=== PATIENT | male | born 1980 | race Caucasian/White ===

== ENCOUNTER 2019-04-12 13:20 | Inpatient (IN) | payer OTHER ==
[~2019-04-12] VITALS: Ht 190.5 cm; Wt 202.3 kg
--- NOTE | 2019-04-12 13:36 | NUR ---
PT STS NO PAIN, ABLE TO SPEAK IN CLEAR FULL SENTENCES.
--- NOTE | 2019-04-12 15:19 | NUR ---
PT AWAKE AND ALERT. PT C/O SOB, COUGH, AND SCROTAL PAIN. PT PLACED ON FULL CM. PT ABLE TO SPEAK IN COMPLETE SENTENCES. RESP E/U. NAD. CALL LIGHT WITHIN REACH. AUNT AT BEDSIDE
[2019-04-12 16:11] LABS: CALCIUM 9.4 mg/dL (8.5-10.1); CARBON DIOXIDE 32.5 mmol/L (21-32); CHLORIDE SERUM 107 mmol/L (98-107); CREATININE SERUM 0.9 mg/dL (0.7-1.3); GFR1 > 60 mL/min; GLUCOSE SERUM 78 mg/dL (74-106); POTASSIUM SERUM 4.4 mmol/L (3.5-5.1); SODIUM SERUM 146 mmol/L (136-145)
--- NOTE | 2019-04-12 16:14 | NUR ---
DR FONTANEZ AT BEDSIDE TO DISCUSS PLAN OF CARE
[2019-04-12 16:16] LABS: ALKALINE PHOSPHATASE 87 U/L (46-116); ALT/SGPT 21 U/L (16-63); AST/SGOT 17 U/L (15-37); BILIRUBIN TOTAL 0.48 mg/dL (0.20-1.00); TOTAL PROTEIN, SERUM 7.7 g/dL (6.4-8.2)
[2019-04-12 16:28] LABS: BASOPHIL % 1.2 % (0-2); PLATELET COUNT 345 x10^3mcL (130-400)
[2019-04-12 16:32] LABS: RED CELL DISTRIBUTION WIDTH 20.7 % (11.5-14.5)
--- NOTE | 2019-04-12 17:30 | NUR ---
PT MEDICATED PER DOCTORS ORDERS
--- NOTE | 2019-04-12 18:16 | NUR ---
ICT ACCOUNT MANAGER AT BEDSIDE FOR BLOOD DRAW
--- NOTE | 2019-04-12 18:40 | NUR ---
PT AMBULATED TO RESTROOM WITH STEADY GAIT.
[2019-04-12 18:47] LABS: MAGNESIUM 2.2 mg/dL (1.8-2.4); PHOSPHOROUS 3.6 mg/dL (2.5-4.9)
--- NOTE | 2019-04-12 18:47 | NUR ---
PT PROVIDED DINNER MEAL TRAY
[2019-04-12 18:48] LABS: CHOLESTEROL/HDL RATIO 2.9
[2019-04-12 18:54] LABS: T3 TOTAL 0.89 ng/mL
[2019-04-12 18:56] LABS: FREE T4 1.25 ng/dL (0.76-1.46); FREE THYROXINE INDEX 2.2 ug/dL (1.4-4.5); T4(THYROXINE) 5.7 ug/dL (4.7-13.3)
[2019-04-12 20:20] VITALS: BP 123/83
--- NOTE | 2019-04-12 20:34 | NUR ---
RECEIVED PT FROM ED VIA [place]. ORIENTED PT TO ROOM AND SURROUNDINGS. IV NOTED TO LAC PATENT AND INTACT. TELE 9 PLACED ON PT READING NSR. INSTRUCTED PT ON THE USE OF CALL LIGHT FOR ASSISTANCE. ENDORSED PT TO PRIMARY NURSE ARPITA
--- NOTE | 2019-04-12 22:15 | NUR ---
RECEIVED PT IN BED. NEW ADM. FROM ED. A/O X4. DENIES HEADACHE/DIZZINESS. RESP. EVEN AND SLIGHTLY LABORED. 02 AT 5L/MIN VIA NC, LUNG SOUNDS DIM. BILAT. SOB NOTED ON EXERTION. HOB ELEVATED. OCCA. NON PRODUCTIVE COUGH NOTED.SR ON THE MONITOR.DENIES CHEST PAIN OR ANY DISCOMFORT AT THIS TIME. AFEBRILE AND VITAL SIGNS STABLE.HL TO LAC, INTACT AND PATENT. DUE MEDS GIVEN ORDERED, LISA. WELL.REDNESS TO GROIN AREA AND ABD. FOLD.SCROTAL EDEMA ALSO NOTED. BLE WITH 3+ EDEMA, ELEVATED ON PILLOW, PEDAL PULSES PALPABLE, ABLE TO MOVE EXTS. KEPT COMFORTABLE. CALL LIGHT WITHIN REACH. WILL CONTINUE TO MONITOR.
--- NOTE | 2019-04-13 02:16 | NUR ---
EYES CLOSED, APPEARS ASLEEP, EASILY AROUSABLE. RESP. EVEN AND UNLABORED. [address], NO ACUTE DISTRESS NOTED. REMAINS SR ON THE MONITOR. CALL LIGHT WITHIN REACH. WILL CONTINUE TO MONITOR.
[2019-04-13 05:26] VITALS: BP 128/59
--- NOTE | 2019-04-13 06:19 | NUR ---
NO COMPLAINTS NOTED DURING THE NIGHT. RESP. EVEN AND UNLABORED. [address], HOB ELEVATED.AFEBRILE AND VITAL SIGNS STABLE. DUE MEDS GIVEN ORDERED, LISA. WELL. VOIDING FREELY. NO COMPLAINTS NOTED. SR ON THE MONITOR, DENIES CP OR PRESSURE. CALL LIGHT WITHIN REACH. WILL CONTINUE TO MONITOR.
[2019-04-13 06:54] LABS: BASOPHIL % 1.9 % (0-2); PLATELET COUNT 369 x10^3mcL (130-400)
[2019-04-13 07:11] LABS: CHLORIDE SERUM 106 mmol/L (98-107); CREATININE SERUM 0.8 mg/dL (0.7-1.3); GFR1 > 60 mL/min; GLUCOSE SERUM 102 mg/dL (74-106); MAGNESIUM 2.1 mg/dL (1.8-2.4); PHOSPHOROUS 4.4 mg/dL (2.5-4.9); POTASSIUM SERUM 4.3 mmol/L (3.5-5.1); SODIUM SERUM 145 mmol/L (136-145)
--- NOTE | 2019-04-13 07:12 | NUR ---
RECEIVED PT FROM SHIFT NURSE A/OX4. NO ACUTE DISTRESS NOTED. RESP EVEN AND UNLABORED ON 5L 02. HEPLOCK PATENT. BED IN LOW POSITION. CALL LIGHT WITHIN REACH. WILL CONTINUE TO MONITOR.
[2019-04-13 08:00] LABS: RED CELL DISTRIBUTION WIDTH 20.4 % (11.5-14.5)
--- NOTE | 2019-04-13 10:15 | NUR ---
PT RESTING IN BED. RESP EVEN AND UNLABORED ON 5L NC. DENIES SOB. BOTH FEET ELEVATED. BED IN LOW POSITION. CALL LIGHT WITHIN REACH. WILL CONTINUE TO MONITOR.
--- NOTE | 2019-04-13 12:17 | NUR ---
PT ASLEEP BUT AROUSABLE. NO ACUTE DISTRESS NOTED. CALL LIGHT WITHIN REACH. WILL CONTINUE TO MONITOR.
[2019-04-13 12:46] VITALS: BP 149/89
[2019-04-13 14:01] LABS: rbc morphology (normal/abnorm) ABNORMAL (NORMAL)
--- NOTE | 2019-04-13 14:56 | NUR ---
PT LYING IN BED WATCHING TV. NO ACUTE DISTRESS NOTED. DENIES SOB. CALL LIGHT WITHIN REACH. WILL CONTINUE TO MONITOR.
[2019-04-13 16:36] VITALS: BP 142/79
--- NOTE | 2019-04-13 16:45 | NUR ---
PT ASLEEP BUT AROUSABLE. NO ACUTE DISTRESS NOTED. CALL LIGHT WITHIN REACH. WILL CONTINUE TO MONITOR.
--- NOTE | 2019-04-13 18:10 | NUR ---
PT SITTING UP IN BED EATING DINNER. RESP EVEN AND UNLABORED ON 5L NC. DENIES SOB. HEPLOCK PATENT. BED IN LOW POSITION. CALL LIGHT WITHIN REACH. WILL BE ENDORSED.
[2019-04-13 19:15] LABS: microscopic required? NO
[2019-04-13 19:22] LABS: urine erythrocyte NEGATIVE (NEGATIVE)
[2019-04-13 19:30] LABS: AMPHETAMINE QUAL UR NONE DETECTED (See below)
--- NOTE | 2019-04-13 20:00 | NUR ---
PT A/A/O X4. DENIES DIZZINESS AND HEADACHE. BREATH SOUNDS DIMINISHED LAURENCE BASES. BREATHING EVEN AND UNLABORED ON 2L NC. DENIES CHEST PAIN AND PRESSURE. BOWEL SOUNDS ACTIVE. NO C/O N/V AND ABD PAIN. PITTING EDEMA NOTED ON BLE EXTENDING TO THE SCROTUM ELEVATED WITH A PILLOW CASE. IV INTACT ON THE LAC. MADE PT COMFORTABLE. PLACED CALL LIGHT WITH IN REACH. WILL CONTINUE TO MONITOR.
[2019-04-13 20:52] VITALS: BP 134/79
[2019-04-14] VITALS (9 sets, daily range): BP systolic 114–153; BP diastolic 49–97
--- NOTE | 2019-04-14 01:21 | NUR ---
PT RESTING WITH EYES CLOSED. NO DISTRESS AND DISCOMFORT NOTED. WILL CONTINUE TO MONITOR.
--- NOTE | 2019-04-14 02:34 | NUR ---
PT HAD AN EPISODE OF ATRIAL FLUTTER. PT ASSYMPTOMATIC. VITAL SIGHS TAKEN. PATIENTS SPO2 83% ON 5L NC. DR. ROMEO NOTIFIED. WAITING FOR ORDERS. WILL CONTINUE TO MONITOR.
--- NOTE | 2019-04-14 03:04 | NUR ---
PT WAS PLACED ON BI PAP BY RT. PT TOLERATING IT WELL. SPO2 100% WITH BI PAP SETTINGS OF IPAP 15, EPAP 5, RATE 16, FIO2 100. WILL CONTINUE TO MONITOR.
--- NOTE | 2019-04-14 03:47 | NUR ---
PT NOT TOLERATING THE BI PAP PER RT. DR. RICH NOTIFIED AND WENT TO PATIENTS BEDSIDE. IPAP CHANGED FROM 15 TO 20. WILL CONTINUE TO MONITOR.
--- NOTE | 2019-04-14 05:54 | NUR ---
PT REFUSING TO KEEP BIPAP OR O2 ON. PT RIPPED OF BIPAP MASK AND WILL NOT LEAVE ON NASAL CANNULA. PER RN DOCTOR IS AWARE WAS IN ROOM AT ONE OF THE TIMES PT TAKING OFF BIPAP MASK. WILL PASS ON TO DAY SHIFT FOR CONTINUED CARE.
[2019-04-14 06:05] LABS: BASOPHIL % 0.2 % (0-2); PLATELET COUNT 351 x10^3mcL (130-400)
--- NOTE | 2019-04-14 06:17 | NUR ---
PT NOT TOLERATING BI PAP, OXYMIZER 8L, SPO2 85% AND 5L NC, SPO2 45%. PT PUT ON 100% NON REBREATHER MASK BY RT, NOW SPO2 94%. INSTRUCTED THE PT NOT TO TAKE OF MASK. PT VERBALIZED UNDERSTANING. WILL ENDORSE TO THE AM NURSE ACCORDINGLY.
[2019-04-14 06:24] LABS: CALCIUM 8.9 mg/dL (8.5-10.1); CARBON DIOXIDE 37.6 mmol/L (21-32); CHLORIDE SERUM 106 mmol/L (98-107); CREATININE SERUM 0.9 mg/dL (0.7-1.3); GFR1 > 60 mL/min; GLUCOSE SERUM 96 mg/dL (74-106); MAGNESIUM 2.2 mg/dL (1.8-2.4); POTASSIUM SERUM 4.2 mmol/L (3.5-5.1); SODIUM SERUM 147 mmol/L (136-145)
[2019-04-14 06:45] LABS: RED CELL DISTRIBUTION WIDTH 21.2 % (11.5-14.5)
--- NOTE | 2019-04-14 07:30 | NUR ---
RECEIVED PT IN BED, AXOX4, VERBAL, NO FACIAL DROOP/SLURRED SPEECH, DENIES PAIN/CORTES/N/V, DENIES CP/PRESSURE, RESP EVEN AND NOT IN ACUTE DISTRESS, LUNG SOUND DIM BLL, ON 100% NON REBREATHER, SAT 97%, CHEST RISE SYMMETRICAL, SR MONITOR, TELE #9, HR 85, ABLE TO MOVE ALL EXTREMITIES, PALP PULSE, CAP REFIL < 3S, EDEMA 3+ TO BLE EXTENDING TO SCROTAL AREA, REDNESS NOTED TO SCROTUM AREA, CONTINENT, ASSSITED PT TO BATHROOM, BACK TO BED, [facility] BED, CALL LIGHT IN REACH, BED AT LOW POSITION, RAILS X 2, ALL NEEDS MET, CONTINUE TO MONITOR
--- NOTE | 2019-04-14 08:30 | NUR ---
R.T. AT BEDSIDE.PT JOT2=427 % ON NON-REBREATHER.PUT HIM ON 12 L OXIMIZER WITH SPO2=97 %. PT GOT UP ON THE SIDE OF THE BED FOR BREAKFAST.
--- NOTE | 2019-04-14 09:10 | NUR ---
AM MEDICATION GIVEN OER MD ORDER VIA EMAR, TAKEN WELL, NO ADVERSE SIDE EFFECT NOTED AT THIS TIME, ASSITED TO BATHROOM, BACK TO BED, SAFETY PROTOCOL FOLLOWED, CONTINUE TO MONITOR
--- NOTE | 2019-04-14 11:41 | NUR ---
I HAVE REVIEWED THE DATA COLLECTION BY GUERA ACEVEDO (NAME):ALBA BURNS ENTERED ON (DATE/TIME):04/14/19 AT 1141 I CONCUR WITH THE DATA AND ANY EXCEPTIONS OR COMMENTS ARE LISTED BELOW:
--- NOTE | 2019-04-14 11:58 | NUR ---
PT IN BED, SLEEPING, IN NO ACUTE RESP DISTRESS, DENIES PAIN/DISCOMFORT, BS CHECKED, NOTED 122, NO INSULIN COVERARGE NEEDED PER SLIDING SCALE, PT AWARE, SAFETY PRECAUTION PROTOCOL FOLLOWED, CONTINUE TO MONITOR
--- NOTE | 2019-04-14 13:15 | NUR ---
RECEIVED CRITICAL ABG RESULT FROM RT AND LAB, DR JARROD BRADLEY, AWAITING FOR CALL BACK, CONTINUE TO MONITOR
--- NOTE | 2019-04-14 13:20 | NUR ---
AT BEDSIDE CHECKING ON PT.SHERWINO RESP THERAPIST AT BEDSIDE. ORDERED TO PUT PT ON BIPAP AND TRANSFER TO ICU FOR CLOSE MONITORING.
--- NOTE | 2019-04-14 13:40 | NUR ---
RECEIVING THE PATIENT TRANSFERRED FROM ROOM 238A [facility] UNIT. PATIENT LETHARGIC, BUT AROUSABLE WITH TACTILE STIMULI AND ORIENTED TO PERSON AND PLACE WITH GARBLED SPEECH. PATIENT IS ON BIPAP AT 20/5, RATE 26 AND FIO2 100%. PATIENT IS HOOKED TO FULLY MONITORING EQUIPMENT; O2 SAT 100% AND TELE SHOWS NORMAL SINUS RHYTHMS AT THIS TIME. CALL LIGHT WITHIN REACH. SIDE RAILS UP X3.
--- NOTE | 2019-04-14 13:41 | NUR ---
TRANSFER PT TO ICU PER MD ORDER, REPORT GIVEN TO GUERA BRANTLEY, IN ICU, PT WILL BE IN ICU ROOM 9
--- NOTE | 2019-04-14 14:41 | NUR ---
ATTEMPTING TO INSERT AVILA CATH TO THE PATIENT BUT UNABLE TO DO SO. DR. BUTLER IS MADE AWARE. WILL ATTEMPT TO INSERT AVILA AGAIN LATER.
--- NOTE | 2019-04-14 15:00 | NUR ---
DR. LEE IS AT BEDSIDE SEEING THE PATIENT AND ADJUSTING THE BIPAP SETTING 24/5 AND RATE 22.
--- NOTE | 2019-04-14 16:06 | NUR ---
DR. LEE PAGED FOR RT TO RELAY ABG RESULTS, AWAITING CALL BACK.
--- NOTE | 2019-04-14 16:25 | NUR ---
RECIEVED CALL BACK FROM DR. LEE AND RELAYED ABG RESULTS WITH NO FURTHER ORDERS AT THIS TIME. WILL CONT TO MONITOR.
--- NOTE | 2019-04-14 17:01 | NUR ---
PATIENT INCONTINENT URINE AND WAS CLEANSED. PATIENT SACRAL-COCCYGEAL AREA IS INTACT. NO REDNESS NOTED. SOME REDNESS TO PERIANAL, SCROTAL AND INNER THIGH AREA. INTERDRY APPLIED TO GROIN AREAS.
--- NOTE | 2019-04-14 18:00 | NUR ---
THE RT CAITLIN CHANGED THE BIPAP TO HIGH FLOW AT 40 LPM AND 100% FIO2. THE SAT AT THIS TIME >90%.
--- NOTE | 2019-04-14 18:17 | NUR ---
PATIENT'S BS VIA FINGER STICK AT FIRST TIME WAS 66. APPLE JUICE WAS GIVEN TO THE PATIENT. BS RECHECKED 87 AFTER PATIENT DRANK JUICE.
--- NOTE | 2019-04-14 18:30 | NUR ---
THE PATIENT TOTALLY AWAKE AND ORIENTED TO PERSON, PLACE AND TIME. PATIENT ABLE TO SIT IN BED HAVING DINNER.
--- NOTE | 2019-04-14 19:00 | NUR ---
THE IV SITE AT LAC LEAKING; ATTEMPTING TO INSERT NEW IV SITE FOR THE PATIENT BUT UNSUCCESSFUL.
--- NOTE | 2019-04-14 19:05 | NUR ---
RECEIVED REPORT FROM CRISTOBAL LYNNE. WILL RESUME CARE.
--- NOTE | 2019-04-14 19:25 | NUR ---
ATTEMPTED TO INSERT AVILA CATHETER WITH NO SUCCESS. PT TRIED USING URINAL BUT DUE TO SCROTAL EDEMA, IT MADE HARD FOR PT TO DO SO WITH URINE LEAKING ONTO CHUCKS. PT URINATED APPROXIMATELY 500CC. PT CLEANED, NEW LINENS PROVIDED.
--- NOTE | 2019-04-14 19:44 | NUR ---
NEW 22G PERIPHERAL IV ADMINISTERED TO LEFT WRIST. PATENT, DRESSING CDI.
--- NOTE | 2019-04-14 19:49 | NUR ---
RT KUNZ AT BEDSIDE FOR ABG BLOOD DRAW.
--- NOTE | 2019-04-14 20:08 | NUR ---
RT KUNZ PUT PT ON BIPAP.
--- NOTE | 2019-04-15 01:00 | NUR ---
INSERTED AVLIA CATHETER 18F DRAINING VIA GRAVITY WITH 800CC OF LIGHT YELLOW URINE OUTPUT. PT TOLERATED WELL.
[2019-04-15 03:11] VITALS: BP 124/62
--- NOTE | 2019-04-15 04:35 | NUR ---
DR. GARAY AT BEDSIDE ASSESSING PT. UPDATES PROVIDED.
[2019-04-15 05:03] LABS: BASOPHIL % 0.3 % (0-2)
[2019-04-15 05:13] LABS: CALCIUM 8.8 mg/dL (8.5-10.1); CHLORIDE SERUM 103 mmol/L (98-107); CREATININE SERUM 0.9 mg/dL (0.7-1.3); GFR1 > 60 mL/min; GLUCOSE SERUM 85 mg/dL (74-106); PHOSPHOROUS 3.7 mg/dL (2.5-4.9); POTASSIUM SERUM 4.1 mmol/L (3.5-5.1); SODIUM SERUM 146 mmol/L (136-145)
[2019-04-15 05:25] LABS: PLATELET COUNT 318 x10^3mcL (130-400)
[2019-04-15 05:26] LABS: CARBON DIOXIDE 41.3 mmol/L (21-32)
[2019-04-15 05:29] LABS: RED CELL DISTRIBUTION WIDTH 20.1 % (11.5-14.5)
[2019-04-15 05:41] LABS: rbc morphology (normal/abnorm) ABNORMAL (NORMAL)
--- NOTE | 2019-04-15 07:10 | NUR ---
RECIEVED PT RESTING BUT AROUSABLE. LETHARGIC IN NATURE. ORIENTED TO PERSON, PLACE, AND TIME. PERRL. NO FACIAL DROOP NOTED. REMAINS ON BIPAP, SETTINGS: 60% FIO2, 22 RATE, 24 IPAP, 5 EPAP. BREATHING E/U. NO SIGNS OF SOB OR RESP DISTRESS NOTED. TRACHEA MIDLINE. NO JVD PRESENT. SKIN IS WARM/DRY TO TOUCH, PINK IN COLOR TO BUE AND REDDENED TO BLE. +1 EDEMA TO BUE, +3 EDEMA NOTED TO BLE. ERYTHEMA NOTED TO PERINEAL AREA, INNER THIGHS, ABD FOLDS. INTERDY AND ZGUARD APPLIED. ABD IS ROUNDED. NO S/S OF N/V. INVERTED PERINEAL AREA NOTED. SCROTAL EDEMA PRESENT. F/C INTACT AND DRAINING VIA GRAVITY. URINE IS LIGHT YELLOW IN COLOR AND CLEAR. GOOD OUTPUT NOTED. ON BERI-BED, BED IN LOWEST POSITION, HOB 45 DEGREES, X3 SIDE RAILS UP, CALL LIGHT WITHIN REACH.
--- NOTE | 2019-04-15 07:10 | NUR ---
RECEIVED REPORT FROM CAITLIN LYNNE. ALL QUESTIONS ANSWERED AND ADDRESSED. WILL RESUME CARE OF PT.
--- NOTE | 2019-04-15 07:16 | NUR ---
GAVE REPORT TO SELVIN LYNNE. ALL QUESTIONS AND CONCERNS ADDRESSED.
[2019-04-15 07:30] VITALS: BP 137/84
[2019-04-15 08:26] VITALS: Ht 190.5 cm; Wt 202.3 kg
--- NOTE | 2019-04-15 08:35 | NUR ---
PT PUT ON HIGH-FLOW AT THIS TIME TO EAT BREAKFAST. SETTINGS: 40LPM AND 60% FIO2. O2 SAT OF 97%. DENIES SOB, N//V, OR ASPIRATION. WILL CONT TO MONITOR.
--- NOTE | 2019-04-15 08:39 | NUR ---
RECIEVED CALL FROM DR. LEE AND RELAYED ABG RESULTS, PER DR. LEE PT TO DO I.S WHILE ON HIFLOW AND THEN BE PLACED BACK ON BIPAP 30 MIN AFTER EATING BREAKFAST. PRIMARY RN AND RT MADE AWARE.
--- NOTE | 2019-04-15 09:08 | NUR ---
INCENTIVE SPIROMETER USED BY PT. 1500ML MEASURED. PT BEING PLACED BACK ON BIPAP BY DOROTHY BRADLEY. BIPAP SETTINGS REMAIN THE SAME: 24 IPAP, 5 EPAP, 60% FIO2, 22 RATE.
--- NOTE | 2019-04-15 10:30 | NUR ---
DR. FRANCES AND RESIDENTS AT BEDSIDE. UPDATES PROVIDED. ALL QUESTIONS AND CONCERNS ADDRESSED. NO NEW ORDERS AT THIS TIME.
--- NOTE | 2019-04-15 10:31 | NUR ---
DR. FRANCES, RESIDENTS, INDUSTRIAL ELECTRICIAN AND PRIMARY RN AT BEDSIDE FOR MORNING ROUNDS. PLAN OF CARE DISCUSSED WITH PT. ALL IN AGREEMENT WITH CARE. WILL CONT TO MONITOR.
[2019-04-15 11:00] VITALS: BP 119/49
--- NOTE | 2019-04-15 12:18 | NUR ---
DOROTHY BRADLEY AT BEDSIDE TO PUT PT ON HIGHFLOW SO THAT PT IS ABLE TO EAT LUNCH. SETTINGS: 40 LPM, 60% FIO2. PT O2 SAT OF 98%. TOLERATING WELL. WILL CONT TO MONITOR.
--- NOTE | 2019-04-15 12:55 | NUR ---
DR. LEE AND DR. IYER AT BEDSIDE ASSESSING PT AND GIVING PT INFORMATION ON CONDITION. PER DR. LEE, WANTS PT TO WORK WITH PHYSICAL THERAPY TO GET HIM UP AND MOVING OUT OF BED TO CHAIR. DR. LEE TITRATED LASIX GTT TO 5ML/HR. NO OTHER NEW ORDERS AT THIS TIME.
--- NOTE | 2019-04-15 13:17 | NUR ---
ULTRASOUND AT BEDSIDE
--- NOTE | 2019-04-15 14:06 | NUR ---
PT NOTED TO BE DESATING ON HIFLOW SPO2 NOTED LOW 80%, PT PLACED BACK ON BIPAP SAME PREVIOUS SETTINGS. SPO2 NOW 97%, WILL CONT TO MONITOR.
--- NOTE | 2019-04-15 14:25 | NUR ---
DOROTHY BRADLEY AT BEDSIDE CHANGING BIPAP SETTINGS TO 22 (IPAP)/5 (EPAP) PER DR. LEE'S ORDERS. PT O2 SAT OF 98%. WILL CONT TO MONITOR
[2019-04-15 15:16] VITALS: BP 131/60
--- NOTE | 2019-04-15 15:56 | NUR ---
DOROTHY BRADLEY AT BEDSIDE. CHANGED BIPAP SETTINGS TO : 50% FIO2, 22/5, 22 RATE. O2 SAT OF 99%. WILL CONT TO MONITOR.
--- NOTE | 2019-04-15 16:02 | NUR ---
INCENTIVE SPIROMETER USED BY PT AND MEASURED 1500ML.
--- NOTE | 2019-04-15 16:08 | NUR ---
PHYSICAL THERAPIST AT BEDSIDE ASSESSING PT.
--- NOTE | 2019-04-15 16:20 | NUR ---
PT WORKING WITH PHYSICAL THERAPIST. PT TOLERATED WELL WITH GETTING OUT OF BED, STANDING UP, AND MOVING SIDE TO SIDE. O2 SAT BETWEEN 97-99% FOR THE DURATION OF THERAPY. WILL CONT TO MONITOR.
--- NOTE | 2019-04-15 16:58 | NUR ---
PT O2 DESATTING TO 89-90%. DOROTHY RT AT BEDSIDE CHANGING BIPAP SETTINGS TO 60% FIO2.
--- NOTE | 2019-04-15 18:49 | NUR ---
PT PUT BACK ON HIFLOW. SETTINGS REMAIN THE SAME PREVIOUS. O2 SAT = 96%.
--- NOTE | 2019-04-15 18:55 | NUR ---
PLACED ON VAPOTHERM 40L, 60% AT THIS TIME. SPO2 97%, NO RESP DISTRESS NOTED. WILL MONITOR.
--- NOTE | 2019-04-15 19:03 | NUR ---
REPORT GIVEN TO JOLANTA LYNNE. ALL QUESTIONS ANSWERED AND ADDRESSED. WILL ENDORSE CARE.
[2019-04-15 19:35] VITALS: BP 135/69
--- NOTE | 2019-04-15 19:35 | NUR ---
REC'D REPORT FROM CORAL LYNNE TO ASSUME CARE. PT IS A/O X4. SPEECH CLEAR AND APPROPRIATE. PERRLA NOTED.EENT FREE OF DISCHARGE.RESPS E/U ON HI-FLOW FIO2 60%. CHEST RISE EQUAL AND SYMMETRICAL. PUNCHBOARD ASSEMBLER IN PLACE SHOWING NSR. BP 135/69 MAP 84, HR 85. CHEST WALL STABLE. DENIES ANY CP, SYNCOPE OR DIZZINESS. PULSES PALPABLE X4. BUE/BLE NONPITTING EDEMA. CAP REFILL < 3 SECS. IV TO L WRIST INTACT AND PATENT. LASIX GTT INFUSING @ 5ML/HR. GEN WEAKNESS NOTED. TURNED AND REPOSITIONED Q2H FOR PRESSURE RELIEF. ABD OBESE, SOFT, NONTENDER TO TOUCH. BOWEL SOUNDS ACTIVE. F/C INTACT AND DRAINING VIA GRAVITY YELLOW URINE. DENIES ANY URINARY SYMPTOMS. BLE, INNER THIGHS, AND CARRIE-AREA ERYTHEMA. PT ON BARIATRIC BED. TURNED AND REPOSITIONED Q2H FOR PRESSURE RELIEF. ALL NEEDS MET AT THIS TIME. WILL CONTINUE TO MONITOR.
--- NOTE | 2019-04-15 22:00 | NUR ---
LAURA RT AT BEDSIDE, PT PLACED ON BIPAP.
--- NOTE | 2019-04-15 23:18 | NUR ---
PTS SPO2 AT 88%, LAURA BRADLEY AT BEDSIDE TITRATED FIO2 TO 70%.
[2019-04-15 23:20] VITALS: BP 118/50
--- NOTE | 2019-04-15 23:25 | NUR ---
PT HAD LARGE SOFT BM, GOOD CARRIE CARE PROVIDED, LINENS CHANGED. PT ABLE TO ASSIST WITH BED MOBILITY.
--- NOTE | 2019-04-16 01:10 | NUR ---
CRITICAL LAB VALUE H/H 6.04/01, DR. CEBALLOS MADE AWARE VIA TELEPHONE. PER DR. CEBALLOS SHE WILL ORDER ANOTHER UNIT OF PRBC.
[2019-04-16 03:11] VITALS: BP 111/58
[2019-04-16 04:44] LABS: BASOPHIL % 0.3 % (0-2); PLATELET COUNT 328 x10^3mcL (130-400)
[2019-04-16 04:47] LABS: RED CELL DISTRIBUTION WIDTH 20.6 % (11.5-14.5)
[2019-04-16 04:52] LABS: CALCIUM 9.2 mg/dL (8.5-10.1); CARBON DIOXIDE 36.6 mmol/L (21-32); CHLORIDE SERUM 100 mmol/L (98-107); CREATININE SERUM 0.9 mg/dL (0.7-1.3); GFR1 > 60 mL/min; GLUCOSE SERUM 84 mg/dL (74-106); PHOSPHOROUS 3.7 mg/dL (2.5-4.9); POTASSIUM SERUM 3.4 mmol/L (3.5-5.1); SODIUM SERUM 142 mmol/L (136-145)
--- NOTE | 2019-04-16 06:25 | NUR ---
LAURA BRADLEY AT BEDSIDE PLACED PT ON HI-FLOW FIO2 60%.
[2019-04-16 07:10] VITALS: BP 140/60
--- NOTE | 2019-04-16 07:10 | NUR ---
RECIEVED REPORT FROM JOLANTA LYNNE. ALL QUESTIONS ANSWERED AND ADDRESSED. WILL RESUME CARE.
--- NOTE | 2019-04-16 07:10 | NUR ---
RECIEVED PT AAOX4. ABLE TO FOLLOW COMMANDS. SPEECH IS CLEAR AND APPROPRIATE. NO FACIAL DROOP NOTED. PUPILS 3MM IN SIZE AND BRISK IN RESPONSE TO LIGHT BILATERALLY. EENT FREE OF DISCHARGE. ORAL MUCOSA PINK AND MOIST. TRACHEA MIDLINE. NO JVD PRESENT. PIMPLES NOTED TO CHEST AREA. ON HIGHFLOW OXYGEN @ 40LPM, 50% FIO2. BREATHING IS EVEN AND UNLABORED. SYMMETRICAL CHEST WALL EXPANSION NOTED. NO ADVENTITIOUS LUNG SOUNDS AUSCULTATED. NO SIGNS OF RESP DISTRESS NOTED. DENIES ANY CP OR TIGHTNESS OR SOB. SKIN IS WARM/DRY TO TOUCH TO BUE AND BLE. COLOR IS PINK TO BUE, REDDENED TO BLE. PIV NOTED TO L WRIST INTACT, PORT PATENT, DRESSING CDI. PT IS MORBIDLY OBESE ON A BERI-BED. ABD IS ROUNDED. AVILA CATHETER IN PLACE AND IS DRAINING VIA GRAVITY. PT IS NOTED TO HAVE AN INVERTED PENIS WITH SCROTAL EDEMA. URINE IS YELLOW IN COLOR WITH GOOD OUTPUT. ERYTHEMA IS NOTED TO THE PERINEAL AREA, ABDOMINAL FOLDS, AND INNER THIGHS. INTERDY TO ABD FOLDS, ZGAURD APPLIED TO ERYTHEMA AREAS. DRY SKIN TO BLE NOTED. X3 SIDE RAILS UP, HOB 30 DEGREES, BED IN LOWEST POSITION, CALL LIGHT WITHIN REACH.
--- NOTE | 2019-04-16 09:37 | NUR ---
DR. FRANCES AND RESIDENTS AT BEDSIDE ASSESSING PT. UPDATES PROVIDED. NO NEW ORDERS AT THIS TIME.
--- NOTE | 2019-04-16 10:36 | NUR ---
INCENTIVE SPIROMETER BEING USED BY PT. 1500ML MEASURED.
--- NOTE | 2019-04-16 10:51 | NUR ---
DOROTHY BRADLEY AT BEDSIDE. HIGHFLOW CHANGED TO 50% FIO2. O2 SAT OF 95%.
[2019-04-16 11:19] VITALS: BP 115/57
--- NOTE | 2019-04-16 12:07 | NUR ---
DR. LEE AT BEDSIDE ASSESSING PT. UPDATES PROVIDED. PT ABLE TO GO UPSTAIRS TO [facility].
--- NOTE | 2019-04-16 13:23 | NUR ---
GIVEN REPORT TO JUANCHO LYNNE FROM [facility]. ALL QUESTIONS ANSWERED AND ADDRESSED. BED 206 A, TELE MONITOR #7. WILL ENDORSE CARE.
[2019-04-16 14:11] VITALS: BP 104/47
--- NOTE | 2019-04-16 16:43 | NUR ---
SEEM BY MD IYER. HI FLOW O2 AT 25LPM AT 40% CONC. SAT 95%
[2019-04-16 16:51] VITALS: BP 121/63
--- NOTE | 2019-04-16 18:39 | NUR ---
UP TO BEDSIDE THEN COMMODE WITH STAFF ASSIST. HAVING DINNER NOW.
--- NOTE | 2019-04-16 20:00 | NUR ---
RECEIVED PT IN BED, ALERT AND ORIENTED. ABLE TO VERBALIZE NEEDS. RESP. EVEN AND UNLABORED. LUNG SOUNDS DIM. BILAT. ON 02 AT 25L/MIN, 40% HIGH FLOW , SAT. 94% . ON CONT. PULSE OX. HOB ELEVATED, NO ACUTE DISTRESS NOTED.AFEBRILE AND VITAL SIGNS STABLE. SR ON THE MONITOR, DENIES CP OR ANY DISCOMFORT AT THIS TIME. ON LASIX GTT AT 5ML/HR, INFUSING VIA LFA, SITE CLEAR. AVILA CATH INTACT AND DRAINING YELLOW COLOR URINE. ON BARIATRIC BED, OBESE, ABLE TO REPOSITION SELF IN BED. WITH SCROTAL SWELLING/REDNESS.REDNESS TO INNER THIGH AND ABD. FOLDS. HS CARE DONE. CALL LIGHT WITHIN REACH. WILL CONTINUE TO MONITOR.
[2019-04-16 20:34] VITALS: BP 138/55
--- NOTE | 2019-04-16 23:15 | NUR ---
PLACED ON BIPAP MACHINE FOR RESP. SUPPORT BY RT. LISA. WELL. NO ACUTE DISTRESS NOTED. WILL CONTINUE TO MONITOR.
--- NOTE | 2019-04-17 02:11 | NUR ---
NO COMPLAINTS NOTED AT THIS TIME. EYES CLOSED, APPEARS ASLEEP, EASILY AROUSABLE. ON BIPAP MACHINE FOR RESP. SUPPORT, LISA. WELL. NO ACUTE DISTRESS NOTED. WILL CONTINUE TO MONITOR.
[2019-04-17 05:30] VITALS: BP 124/60
[2019-04-17 05:58] LABS: BASOPHIL % 0.3 % (0-2); PLATELET COUNT 321 x10^3mcL (130-400)
--- NOTE | 2019-04-17 06:07 | NUR ---
OFF BIPAP MACHINE AT THIS TIME, PLACED ON 02 AT 25L/MIN, 40% VIA HI FLOW, SAT. 95% , LISA. WELL. NO ACUTE DISTRESS NOTED. SLEPT WELL, NO SIGNIFICANT CHNAGE IN PT,S CONDITION. AFEBRILE AND VITAL SIGNS STABLE. SR ON THE MONITOR, DENIES CHEST PAIN OR ANY DISCOMFORT AT THIS TIME. DUE MEDS GIVEN ORDERED, LISA. WELL. REMAINS ON LASIX DRIP AT 5CC/HR, IV SITE CLEAR. AVILA CATH DRAINING YELLOW COLOR URINE, TOTAL AMT. 1800ML. KEPT COMFORTABLE. CALL LIGHT WITHIN REACH. WILL CONTINUE TO MONITOR.
[2019-04-17 06:41] LABS: CALCIUM 8.9 mg/dL (8.5-10.1); CARBON DIOXIDE 33.9 mmol/L (21-32); CHLORIDE SERUM 102 mmol/L (98-107); CREATININE SERUM 0.8 mg/dL (0.7-1.3); GFR1 > 60 mL/min; GLUCOSE SERUM 89 mg/dL (74-106); MAGNESIUM 2.1 mg/dL (1.8-2.4); PHOSPHOROUS 4.5 mg/dL (2.5-4.9); POTASSIUM SERUM 3.5 mmol/L (3.5-5.1); SODIUM SERUM 141 mmol/L (136-145)
[2019-04-17 06:49] LABS: RED CELL DISTRIBUTION WIDTH 20.5 % (11.5-14.5)
--- NOTE | 2019-04-17 07:20 | NUR ---
RECEIVED PT FROM ASSEMBLER BILLIARD TABLE. PT AWAKE, ALERT A/O X3. PT ON HI FLOW O2 25LPM, NO RESP DISTRESS NOTED AT THIS TIME. PT ON TELE 7, DENIES CHEST PAIN. PERIPHERAL PULSES PALPABLE. EDEMA NOTED TO BLE. PT HAS AVILA CATH WITH CLEAR YELLOW URINE DRAINING. REPORTS BM YESTERDAY WITH NO ISSUES. IV ACCESS LFA C/D/I INFUSING LASIX GTT AT 5ML/HR. PT DENIES PAIN AT THIS TIME. PT NOTED TO HAVE GENERALIZED WEAKNESS. SAFETY MEASURES IN PLACE, BED LOW AND LOCKED. CALL LIGHT WITHIN REACH.
[2019-04-17 08:22] VITALS: BP 125/51
--- NOTE | 2019-04-17 08:53 | NUR ---
DUE MEDS ADMINISTERED. PT TOLERATED WELL. NO ACUTE DISTRESS NOTED AT THIS TIME. PT DENIES PAIN. SAFETY MAINTAINED.
--- NOTE | 2019-04-17 10:45 | NUR ---
PT NOTED TO DESATURATE WHEN SLEEPING. WHEN PT AWAKE, 02 LEVEL RISES. PT USING INCENTIVE SPIROMETER TO HELP WITH SATURATION WHILE AWAKE. PT ENCOURAGED TO USE INCENTIVE SPIROMETER.
[2019-04-17 11:46] LABS: rbc morphology (normal/abnorm) ABNORMAL (NORMAL)
[2019-04-17 12:16] VITALS: BP 112/49
--- NOTE | 2019-04-17 12:29 | NUR ---
Initial Nutrition Assessment: () KINSEY PUCKETT 39M Dx: Heart failure PMHx: HTN PSHx: None Labs: Alb 3.0 L, HDL 26 L, BNP 71.59 WNL, A1c 6.4 H, TSH 6.81 H Meds: Colace, Coreg, Lasix, Synthroid, Zestril, Zofran Diet: CCHO PO intake since admission: 100% Ht: 75in Wt: 472# BMI: 59.1 Bed scale: N/A IBW: 196# %IBW: 241% UBW: ~300# Age: 39 Food Allergies: NKFA Skin: Scrotal swelling/red, redness to inner thigh and abd folds Juan: 15 Edema: BLE, scrotal GI: Obese, BS active, no N/V noted Last BM: 04/16 Note (04/17): Visited pt bedside, states no c/o pain at this time, SOB better, and BLE edma improving. Pt states usually around 300# and trying to lose weight, says cut out soft drinks from diet since last July. Pt on Lasix regimen (40mg IV BID) and 1L/day fluid restriction r/t new onset CHF per H&P. Provided and explained handout on managing heart failure with diet. Pt states has never spoken w/ a dietitian or MD on any specific diet to follow or taken any diet/health education. Spoke w/ Dr Juan regarding diet adjustment, confirmed. Problem with: N/V/D/C: None Problems with: Chewing: No Swallowing: No Current appetite: good Recent wt change: Yes, UBW 300# %wt change: N/A Vitamin/Supplement use: MVI (1 a Day & Alive) Special diet at home: Regular, low sodium. Physical activity: Occupation 8hrs/day, 5 days/wk (sometimes 10-12hrs/day) Nutrition education given (specify specific nutrition education and handout given): [facility] Heart Failure Nutrition Therapy: tracking and limiting Na intake to 2g/day, monitoring fluid intake and daily weight, and choosing lower fat food items. Explained to pt how sodium retains water in the body, and the benefits of moderate wt loss for this condition. Food-drug interactions? Education given? [facility] Heart Failure Nutrition Therapy Estimated Nutritional Needs Based on adjusted body weight (120.5 kg) Energy: 1260-7820 kcal/day (30-35 kcal/kg for obesity/moderate wt loss) Protein: 68-82 g/day (1.5-2.0 g/kg) Fluid: 1000mL/day per MD (r/t Lasix regimen; fluid restriction r/t CHF) Nutrition Diagnosis: Altered nutrition-related lab values r/t obesity, heart failure AEB BMI 59.1, HDL 26, A1c 6.4 H Intervention 1. Recommend change diet order to Cardiac diet. Monitor/Evaluate Goal: PO intake at least 75% of estimated needs Monitor: PO intake, Labs, GI function F/U in 3-5 days as modeate risk 04/20-04/22.
--- NOTE | 2019-04-17 12:57 | NUR ---
PT AWAKE WITH FAMILY AT BEDSIDE. NO ACUTE DISTRESS OR DISCOMFORT NOTED AT THIS TIME. WILL CONTINUE TO MONITOR.
--- NOTE | 2019-04-17 14:19 | NUR ---
PT AWAKE, ALERT WATCHING TV WITH NO ACUTE DISTRESS NOTED AT THIS TIME. SAFETY MEASURES MAINTAINED.
--- NOTE | 2019-04-17 16:39 | NUR ---
PT REPOSITIONED WITH CHUCKS CHANGED. LOTION APPLIED TO BOTH FEET AND LOWER LEGS. NO ISSUES NOTED WITH SKIN AT THIS TIME. INTERDRY BETWEEN FOLDS OF ABDOMEN AND GROIN. PT SCROTUM SUPPORTED OFF MATRESS. PT DENIES ANY PAIN AT THIS TIME. NO RESP DISTRESS NOTED. SAFETY MAINTAINED.
[2019-04-17 17:11] VITALS: BP 118/48
--- NOTE | 2019-04-17 18:40 | NUR ---
PT STABLE AT THIS TIME. NO ACUTE/RESP DISTRESS NOTED AT THIS TIME. ALL NEEDS TENDED TO THROUGHOUT SHIFT. PT ABLE TO MAKE NEEDS KNOWN. 4000ML URINE OUT ON DAY SHIFT WITH LASIX GTT. NO BM TODAY. 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
--- NOTE | 2019-04-17 19:40 | NUR ---
RECEIVED REPORT FROM DAY SHIFT RN. PT RESTING IN BED. AA&O X4. NO SOB ON HIGH FLOW O2 25L. NO C/O PAIN. NO DISTRESS NOTED. IV TO LEFT WRIST, LASIX INFUSING. AVILA CATHETER IN PLACE DRAINING YELLOW URINE BY GRAVITY. SAFETY MEASURES IN PLACE. BED IN LOWEST POSITION. SIDE RAILS UP X2. INSTRUCTED PT TO USE THE CALL LIGHT FOR ASSISTANCE. CALL LIGHT WITHIN REACH.
[2019-04-17 20:35] VITALS: BP 120/56
--- NOTE | 2019-04-18 00:45 | NUR ---
PT RESTING WITH EYES CLOSED. NO RESPIRATORY DISTRESS: IPAP 22, EPAP 5, RATE 22, FIO2 60. CALL LIGHT WITHIN EASY REACH. WILL CONTINUE TO MONITOR.
[2019-04-18 05:19] VITALS: BP 133/75
--- NOTE | 2019-04-18 06:49 | NUR ---
PT RESTED AT LONG INTERVALS THROUGHOUT SHIFT. NO RESP DISTRESS NOTED. ON BIPAP AT THIS TIME. SAFETY MEASURES MAINTAINED. CALL LIGHT WITHIN REACH. WILL ENDORSE CONTINUITY OF CARE TO DAY SHIFT RN.
[2019-04-18 07:17] LABS: CALCIUM 9.3 mg/dL (8.5-10.1); CARBON DIOXIDE 29.1 mmol/L (21-32); CHLORIDE SERUM 103 mmol/L (98-107); CREATININE SERUM 0.7 mg/dL (0.7-1.3); GFR1 > 60 mL/min; GLUCOSE SERUM 86 mg/dL (74-106); POTASSIUM SERUM 3.9 mmol/L (3.5-5.1); SODIUM SERUM 139 mmol/L (136-145)
--- NOTE | 2019-04-18 07:20 | NUR ---
RECIEVED PT RESTING IN BED WITH NO C/O PAIN, DISTRESS, OR SOB. A/O X4. TELE MONITOR #7 CONNECTED TO PT. DENIES CH OR PRESSURE. PT ON RT PROTOCAL. SASIX RUNNING AT 5ML/HR IN LEFT WRIST. IV INTACT AND PATENT WITH NO REDNESS OR INFLAMMATION. SAFETY PRECAUTIONS IN PLACE, CALL LIGHT WITHIN REACH, WILL MONIOTR.
[2019-04-18 08:03] LABS: BASOPHIL % 0.4 % (0-2); PLATELET COUNT 256 x10^3mcL (130-400)
[2019-04-18 08:05] LABS: RED CELL DISTRIBUTION WIDTH 20.7 % (11.5-14.5)
[2019-04-18 08:09] LABS: rbc morphology (normal/abnorm) ABNORMAL (NORMAL)
[2019-04-18 08:10] VITALS: BP 126/55
--- NOTE | 2019-04-18 10:33 | NUR ---
PT RESTING IN BED WATCHING TV. DENIES ANY PAIN, DISTRESS, OR SOB. SAFETY PRECAUTIONS IN PLACE, CALL LIGHT WITHIN REACH, WILL MONITOR.
[2019-04-18 12:12] VITALS: BP 120/60
--- NOTE | 2019-04-18 12:55 | NUR ---
PT STABLE AT THIS TIME WITH NO C/O PAIN, DISTRESS, OR SOB. PT ON 25 LITERS O2 AT 405 HIGH FLOW. SATURATION 93-94%. FAMILY AT BEDSIDE, SAFETY PRECAUTIONS IN PLACE, CALL LIGHT WITHIN REACH, WILL MONITOR.
--- NOTE | 2019-04-18 16:00 | NUR ---
PT STABLE. NO C/O PAIN, DISTRESS, OR SOB. WILL MONITOR
[2019-04-18 16:17] VITALS: BP 106/51
--- NOTE | 2019-04-18 18:44 | NUR ---
PT STABLE AT THIS TIME. NO C/O PAIN, DOSTRESS, OR SOB. IV INTACT AND PATENT WITH NO REDNESS NOTED, RUNNING LASIX AT 5ML/HR. AVILA CATHETER INTACT AND DRAINING YELLOW URINE, DENIES PAIN OR BURNING. PT ON HIGH FLOW 25 O2 LPM AT 40%. TOLERATED ALL CARES WELL. SAFETY PREC IN PLACE, CALL LIGHT WITHIN REACH, WILL ENDORSE TO NIGHT NURSE.
--- NOTE | 2019-04-18 19:35 | NUR ---
RECIEVED PT RESTING IN BED COMFORTABLY WITH NO ACUTE DISTRESS AT THIS TIME, PT A/O X 4 NO COMPLAINTS OF CORTES OR DIZZINESS, PT DENIES SOB AT THIS TIME, PT ON HI FROILAN O2 25L, FIO2 40%, ASSESSMENT PERFORMED AT THIS TIME, SAFETY PRECAUTIONS IN PLACE WILL CONTINUE TO MONITOR
[2019-04-18 21:46] VITALS: BP 121/62
--- NOTE | 2019-04-18 23:10 | NUR ---
PT SLEEPING IN BED WITH NO ACUTE DISTRESS AT THIS TIME, RESPIRATIONS EVEN AND UNLABORED, SAFETY PRECAUTIONS IN PLACE, WILL CONTINUE TO MONITOR
--- NOTE | 2019-04-19 01:32 | NUR ---
PT SLEEPING IN BED WITH NO ACUTE DISTRESS NOTED AT THIS TIME, RESPIRATIONS EVEN AND UNLABORED, PT AROUSABLE TO VERBAL STIMULI, SAFETY PRECAUTIONS IN PLACE, WILL CONTINUE TO MONITOR
--- NOTE | 2019-04-19 03:03 | NUR ---
PT SLEEPING IN BED COMFORTABLY WITH NO ACUTE DISTRESS AT THIS TIME, RESPIRATIONS EVEN AND UNLABORED, SAFETY PRECAUTIONS IN PLACE, WILL CONTINUE TO MONITOR
--- NOTE | 2019-04-19 05:10 | NUR ---
PT SLEPT THROUGH THE NIGHT WITH NO ACUTE DISTRESS NOTED, PT HAD NO EPISODES OF SOB OR CHEST PAIN, PT A/OX4 THROUGH OUT SHIFT, SAFETY PRECAUTIONS WERE MAINTAINED THROUGHOUT THE SHIFT, WILL CONTINUE TO MONITOR AND ENDORSE CARE TO ONCOMING RN
[2019-04-19 06:47] VITALS: BP 126/63
[2019-04-19 07:06] LABS: CALCIUM 9.7 mg/dL (8.5-10.1); CHLORIDE SERUM 102 mmol/L (98-107); CREATININE SERUM 0.7 mg/dL (0.7-1.3); GFR1 > 60 mL/min; GLUCOSE SERUM 88 mg/dL (74-106); MAGNESIUM 2.3 mg/dL (1.8-2.4); PHOSPHOROUS 4.7 mg/dL (2.5-4.9); POTASSIUM SERUM 3.9 mmol/L (3.5-5.1); SODIUM SERUM 139 mmol/L (136-145)
--- NOTE | 2019-04-19 07:10 | NUR ---
RECIEVED PT RESTING IN BED WATCHING TV. NO C/O PAIN, DISTRESS, OR SOB. PT ON TELE #7, DENIES CP OR PRESSURE. PT ON HIGH FLOW 25 LPM O2 40%. AVILA IN PLACE AND DRAINING YELLOW URINE, DENIES PAIN OR BURNING. IN INTACT AND PATENT WITH NO REDNESSS/INFLAMMATION. RUNNING LASIX 5ML/HR. SAFETY PRECAUTIONS IN PLACE, CALL LIGHT WITHIN REACH, WILL MONITOR.
[2019-04-19 08:10] LABS: PLATELET COUNT 289 x10^3mcL (130-400)
[2019-04-19 08:14] LABS: BASOPHIL % 0 % (0-2); RED CELL DISTRIBUTION WIDTH 20.3 % (11.5-14.5)
[2019-04-19 08:17] LABS: rbc morphology (normal/abnorm) ABNORMAL (NORMAL)
[2019-04-19 09:10] VITALS: BP 121/61
--- NOTE | 2019-04-19 10:00 | NUR ---
PT STABLE, IN BED WATCHING TV. NO C/O PAIN, DISTRESS, OR SOB NOTED. SAFETY PREC IN PLACE, CALL LIGHT WITHIN REACH, WILL MONITOR.
[2019-04-19 12:49] VITALS: BP 121/61
[2019-04-19 12:53] VITALS: BP 130/65
--- NOTE | 2019-04-19 14:00 | NUR ---
PT STABLE. NO C/O PAIN, DISTRESS, OR SOB. CALL LIGHT WITHIN REACH, WILL MONITOR.
[2019-04-19 17:22] VITALS: BP 122/50
--- NOTE | 2019-04-19 18:36 | NUR ---
PT STABLE IN BED WATCHING TV. DENIES ANY PAIN, DISTRESS, OR SOB. IV INTACT AND PATENT WITH NO REDNESS. LASIX RUNNING AT 5ML/HR. PT ON HIGH FLOW 25 LPM O2 40%. AVILA CATHETER IN PLACE AND DRAINING YELLOW URINE. TOLERATED ALL CARES WELL. SAFETY PRECAUTIONS IN PLACE, CALL LIGHT WITHIN REACH, WILL ENDORE CARE TO NIGHT NURSE.
--- NOTE | 2019-04-19 19:35 | NUR ---
RECIEVED PT RESTING IN BED WITH NO ACUTE DISTRESS NOTED AT THIS TIME, PT IS ON HI FLOW O2 AT 25L 40%, PT DENIES SOB AT THIS TIME, ASSESSMENT PERFORMED AT THIS TIME, IV TO THE RIGHT WRIST 22 G INFUSING LASIX DRIP AT 5 ML PER HOUR. SAFETY PRECAUTIONS IN PLACE, WILL CONTINUE TO MONITOR
[2019-04-19 20:35] VITALS: BP 121/68
--- NOTE | 2019-04-19 21:45 | NUR ---
PT OUT OF BED AND AMBULATED TO CHAIR AT BEDSIDE
--- NOTE | 2019-04-19 22:45 | NUR ---
BED LINENS CHANGED, HYGIENE PERFORMED, CLEANED PT AND APPLIED LOTION TO BACK AND BUTTOCKS AND PT AMBULATED BACK INTO BED. SAFETY PRECAUTIONS IN PLACE, CALL LIGHT IN REACH, WILL CONTINUE TO MONITOR
--- NOTE | 2019-04-19 23:00 | NUR ---
PT REQUESTING TO BE PUT ON BIPAP TO GO TO SLEEP, RT CALLED AND ON THEIR WAY
--- NOTE | 2019-04-20 01:40 | NUR ---
PT SLEEPING COMFORTABLY WITH NO ACUTE DISTRESS AT THIS TIME, RESPIRATIONS EVEN AND UNLABORED, SAFETY PRECAUTIONS IN PLACE, WILL CONTINUE TO MONITOR
--- NOTE | 2019-04-20 03:20 | NUR ---
PT SLEEPING IN BED WITH BIPAP IN PLACE, PT RESPIRATIONS EVEN AND UNLABORED, SAFETY PRECAUTIONS IN PLACE, WILL CONTINUE TO MONITOR
[2019-04-20 05:50] VITALS: BP 128/72
--- NOTE | 2019-04-20 06:00 | NUR ---
PT SLEPT COMFORTABLY THROUGH THE NIGHT, PT HAD NO EPISODES OF SOB, BLOOD SUGARS WERE WELL CONTROLLED, PT DENIED CHEST PAIN OR PRESSURE THROUGH SHIFT, PT WAS UP AND AMBULATED TO CHAIR AND SAT IN CHAIR FOR ABOUT AN HOUR, SAFETY PRECAUTIONS WERE MAINTAINED WILL CONTINUE TO MONITOR AND ENDORSE CARE TO ONCOMING SHIFT
[2019-04-20 06:21] LABS: CALCIUM 9.2 mg/dL (8.5-10.1); CARBON DIOXIDE 33.9 mmol/L (21-32); CHLORIDE SERUM 103 mmol/L (98-107); CREATININE SERUM 0.9 mg/dL (0.7-1.3); GFR1 > 60 mL/min; GLUCOSE SERUM 95 mg/dL (74-106); POTASSIUM SERUM 3.9 mmol/L (3.5-5.1); SODIUM SERUM 141 mmol/L (136-145)
[2019-04-20 06:35] LABS: PLATELET COUNT 323 x10^3mcL (130-400)
[2019-04-20 07:19] LABS: BASOPHIL % 0 % (0-2); RED CELL DISTRIBUTION WIDTH 21.2 % (11.5-14.5)
--- NOTE | 2019-04-20 07:30 | NUR ---
RECEIVED PT FROM CYBER REVERSE ENGINEER RN. Kat/KEILA. TELE#7. DENIES CHEST PAIN/PRESSURE. RESPIRATIONS EQUAL AND UNLABORED ON HIGH FLOW 25L. PT DENIES SOB AT THIS TIME. PT DENIES ANY PAIN AT THIS TIME. AVILA CATHETER IN PLACE DRAINING MANDEEP YELLOW URINE. SCROTAL SWELING NOTED. SPECIALIZED LANGUAGE INSTRUCTOR. IV TO LW INFUSING LASIX DRIP AT 5ML/HR. NO REDNESS OR SWELLING NOTED. WILL CONTINUE TO MONITOR. CALL LIGHT IN REACH. BED IN LOWEST POSITION.
[2019-04-20 07:51] VITALS: BP 128/70
--- NOTE | 2019-04-20 09:15 | NUR ---
PT SITTING UP IN BED. NO ACUTE RESP DISTRESS NOTED ON HIGH FLOW 25L. PT DENIES ANY PAIN AT THIS TIME. GIVEN PO MEDS. TOLERATED WELL. PT STATES DR. MURILLO WANTS HIM TO GET OUT OF BED AND WALK. PT STATES I WILL GET UP AND WALK AROUND 1200. IV TO LW LASIX DRIP INFUSING AT 5ML/HR. TO BE D/C'D AFTER BAG HAS FINISHED. WILL CONTINUE TO MONITOR. CALL LIGHT IN REACH. BED IN LOWEST POSITION.
[2019-04-20 12:18] VITALS: BP 124/76
[2019-04-20 13:51] LABS: rbc morphology (normal/abnorm) ABNORMAL (NORMAL)
--- NOTE | 2019-04-20 14:07 | NUR ---
Follow-up Nutrition Assessment: (-) KINSEY PUCKETT 39M Dx: Heart failure PMHx: HTN Labs: CO2 33.9 H, PT 11.8 H Meds: Colace, Flomax, Glucohphage, Humulin, Lipitor, Lopressor, Mylanta, Vancomycin, Coumadin Diet: CCHO PO Intake: <75% Weights: 445# (04/20) 473# (04/16) 493# (04/15) Skin: redness to inner thigh, scrotal edema Juan: 17 I/Os: 480/3800 (04/20) 600/4500 (04/19) 1080/6150 (04/18) 890/3050 (04/17) Edema: Trace BLE, scrotal GI: Abd large, round, nontender, BS active x4 Last BM: 04/18 RD Note (04/20): Vistied pt bedside, pt states edema getting better. Noted -28# x 4 days, per wt log. Expected wt fluctuation/loss w/ Lasix regimen. Noted MD D/C Lasix 100mg Q10hrs, started Lasix 40mg BID. Pt no c/o abd pain, CP, or SOB. Pt states abd feels normal, but feels a little full. Explained to patient that he may still be retaining a little bit of water and that his Lasix regimen is still continuing. Pt states eating fine, appetite good. Pt discussed in bed huddles, awaiting PT evaluation. Pt may benefit from moderate wt loss. Pt wanted to know if he is still on a fluid restriction for when he will be discharged. Explained to pt that MD might want him to restrict fluids after he is discharged, so excplained how to interpret how much fluid is in a various types of drink sizes for if his Dr wants to continue him on a fluid restriction. Fluid volume conversion shown in handout provided to pt in previous visit. Noted confirmed w/ recommendation to change diet from CCHO to Cardiac diet input on 04/17; current diet order [facility]. Spoke w/ STREET LIGHT INSPECTOR Nino and [facility] RN regarding diet order change to Cardiac diet, confirmed. Estimated Nutritional Needs Based on adjusted body weight (117.4 kg) Energy: 1870-9414 kcal/day (30-35 kcal/kg for obesity/moderate wt loss) Protein: 176-235 g/day (1.5-2.0 g/kg) Fluid: 1000 mL/day per MD (r/t Lasix regimen; fluid restriction r/t CHF) Nutrition Diagnosis 04/16: Altered-nutrition related lab values r/t obesity, heart failure AEB BMI 59.1, HDL 26, A1c 6.4 H. 04/20: No new nutrition diagnosis at this time. Intervention 1. 04/16: Recommend change diet order to Cardiac diet. 2. 04/19: Recommend change diet order to Cardiac diet. Monitor/Evaluate Goal: Have pt meet at least 75% of estimated needs Monitor: PO intake, Labs, GI function F/U in 3-5 days as moderate risk 04/23-04/25
--- NOTE | 2019-04-20 14:08 | NUR ---
Recommendations: 1. Recommend change diet order to Cardiac diet.
--- NOTE | 2019-04-20 15:39 | NUR ---
PT SITTING UP IN BED. ASSISTED PT OUT OF BED. PT WALKED AT BEDSIDE. NO ACUTE RESP DISTRESS NOTED ON HIGH FLOW 25L. PT TOLERATED WALKING. 02 SAT MAINTAINED 96%. IV PATENT AND INFUSING. NO REDNESS OR SWELLING NOTED. PT SITTING UP AT BEDSIDE. PT STATES HE WILL TRY TO SIT UP UNTIL DINNER. EMPTIED 1020 ML OF CLEAR YELLOW URINE FROM AVILA. WILL CONTINUE TO MONITOR. CALL LIGHT IN REACH. BED IN LOWEST POSITION.
[2019-04-20 15:43] VITALS: BP 123/77
--- NOTE | 2019-04-20 16:25 | NUR ---
PT SITTING UP IN BED. RESPIRATORY THERAPIST ZE AT BEDSIDE. PT RECEIVING BREATHING TREATMENT. PER ZE PT HAS BEEN UNABLE TO WEAN OFF HIGH FLOW 25L. PT SATING WELL ON 25L. PER ZE WILL TRY AGAIN TOMORROW. BLOOD SUGAR CHECKED WAS 110. NO COVERAGE NEEDED. WILL CONTINUE TO MONITOR. CALL LIGHT IN REACH. BED IN LOWEST POSITION.
--- NOTE | 2019-04-20 18:53 | NUR ---
PT SITTING UP IN BED. NO ACUTE RESP DISTRESS NOTED ON HIGH FLOW 25L. PT DENIES ANY PAIN AT THIS TIME. IV TO LW PATENT AND INFUSING. LASIX DRIP STILL INFUSING AT 5 ML/HR. AIR MATTRESS IN PLACE. WILL ENDORSE TO BRANCH STORE MANAGER RN. CALL LIGHT IN REACH. BED IN LOWEST POSITION.
--- NOTE | 2019-04-20 19:10 | NUR ---
RECEIVED PT LAYING IN BED, NO ACUTE DISTRESS OBSERVED. DENIES PAIN OR DISCOMFORT. BREATHING EVEN AND UNLABORED ON HIGH FLOW O2 AT 25 LPM, LUNGS CTA, CONTINUOUS PULSE OX IN PLACE, 92% DENIES SOB OR DYSPNEA. AA/OX4, ABLE TO MAKE NEEDS KNOWN, SPEECH CLEAR AND APPROPRIATE, AROUSABLE TO VERBAL STIMULI. NSR TO TELE #7, DENIES CP OR PRESSURE. WEAK PEDAL PULSES, TRACE EDEMA TO BLE, PT ON HEP SQ THERAPY. ABD ROUND AND SOFT WITH ACTIVE BOWEL SOUNDS, DENIES N/V/D. AVILA CATH IN PLACE, DRAINING YELLOW URINE TO GRAVITY, MILD SCROTAL EDEMA NOTED. GENERALIZED WEAKNESS, AMBULATORY AND ABLE TO REPOSITION SELF IN BED, DOING WELL WITH P.T. REDNESS WITH FOUL ODOR NOTED TO ABD FOLDS AND B/L THIGH FOLDS, INTERDRY IN PLACE, CDI. IV TO LW INFUSING FINAL BAG OF LASIX DRIP AT 5 ML/HR, NO PAIN, REDNESS OR SWELLING NOTED. COMFORT AND SAFETY MEASURES IN PLACE. ALL NEEDS ASSESSED AND ATTENDED TO. CALL LIGHT WITHIN REACH. WILL CONTINUE TO MONITOR
[2019-04-20 21:10] VITALS: BP 124/66
--- NOTE | 2019-04-20 21:20 | NUR ---
FINAL BAG OF LASIX DRIP FINISHED DISCARDED PER PROCOTOL.
--- NOTE | 2019-04-20 23:00 | NUR ---
PT PLACED ON BIPAP PER RT AT THIS TIME, 04/03; RATE 22; FIO2 60% PT TOLERATING WELL, BREATHING EVEN AND UNLABORED, DENIES SOB OR DYSPNEA. CONTINUOUS PULSE OX REMAINS IN PLACE, O2 SAT 98% CALL LIGHT WITHIN REACH. WILL CONTINUE TO MONITOR
--- NOTE | 2019-04-21 05:30 | NUR ---
BIPAP REMOVED AND PT PLACED ONTO HIGH FLOW PER RT. BREATHING EVEN AND UNLABORED ON HIGH FLOW O2 AT 25 LPM, NO ACUTE DISTRESS OBSERVED. NO SIGNIFICANT CHANGES TO REPORT, PT COMPLIED WITH NURSING CARE THROUGHOUT THE SHIFT WITH NO ACUTE EVENTS. NO ACUTE DISTRESS OBSERVED AT THIS TIME, AROUSABLE TO VERBAL STIMULI. COMFORT AND SAFETY MEASURES MAINTAINED. ALL NEEDS ASSESSED AND ATTENDED TO. CALL LIGHT WITHIN REACH. WILL CONTINUE TO MONITOR AND ENDORSE CARE TO DAY SHIFT NURSE
[2019-04-21 06:03] VITALS: BP 121/74
[2019-04-21 06:28] LABS: PLATELET COUNT 342 x10^3mcL (130-400)
[2019-04-21 06:36] LABS: RED CELL DISTRIBUTION WIDTH 21.3 % (11.5-14.5)
[2019-04-21 06:38] LABS: CARBON DIOXIDE 35.7 mmol/L (21-32); CHLORIDE SERUM 98 mmol/L (98-107); CREATININE SERUM 1.1 mg/dL (0.7-1.3); GFR1 > 60 mL/min; GLUCOSE SERUM 92 mg/dL (74-106); POTASSIUM SERUM 3.8 mmol/L (3.5-5.1); SODIUM SERUM 140 mmol/L (136-145)
[2019-04-21 06:54] LABS: CALCIUM 10.4 mg/dL (8.5-10.1)
--- NOTE | 2019-04-21 07:20 | NUR ---
RECEIVED PT FROM TIRE ADJUSTER. PT AWAKE, ALERT. A/OX4. PT ON HIGH FLOW O2 25L WITH NO RESP DISTRESS NOTED AT THIS TIME. PT ON TELE 7, DENIES CHEST PAIN, DENIES HEADACHE. IV ACCESS LW C/D/I SALINE LOCKED. PT HAS AVILA CATHETER WITH CLEAR YELLOW URINE DRAINING. NO ISSUES IDENTIFIED WITH ELIMINATION. PT HAS TRACE EDEMA TO BLE. PT NOTED TO HAVE GENERALIZED WEAKNESS. ABLE TO AMBULATE. SAFETY MEASURES IN PLACE, BED LOW AND LOCKED. CALL LIGHT WITHIN REACH.
--- NOTE | 2019-04-21 09:05 | NUR ---
DUE MEDS ADMINISTERED. PT TOLERATED WELL. NO ACUTE DISTRESS NOTED. PT DENIES PAIN AT THIS TIME.
[2019-04-21 09:51] VITALS: BP 116/64
--- NOTE | 2019-04-21 12:26 | NUR ---
PT RESTING AWAKE WATCHING TV WITH NO DISTRESS NOTED. O2 SAT 88% AT THIS TIME ON CONTINUOUS PULSE OX. PT DENIES PAIN. ALL NEEDS MET AT THIS TIME.
[2019-04-21 13:39] VITALS: BP 110/60
[2019-04-21 13:54] LABS: rbc morphology (normal/abnorm) ABNORMAL (NORMAL)
[2019-04-21 14:00] LABS: ATYPICAL LYMPH 0 %; BAND NEUTROPHIL 0 % (0-10); BASOPHIL 0 % (0-2); BLAST 0 % (0); METAMYELOCTE 0 % (0-2); MONOCYTE 4 % (0-7); MYELOCYTE 0 % (0-2); PROMYELOCYTE 0 % (0-0); SEGMENTED NEUTROPHILS 90 % (37-75)
[2019-04-21 14:01] LABS: PLATELET MORPHOLOGY PLATELETS NORMAL
--- NOTE | 2019-04-21 15:02 | NUR ---
ALL NEEDS MET AT THIS TIME. PT ABLE TO MAKE NEEDS KNOWN, CALL LIGHT WITHIN REACH.
[2019-04-21 17:51] VITALS: BP 105/57
--- NOTE | 2019-04-21 18:36 | NUR ---
PT TURNED AND REPOSITIONED, NO SKIN BREAKDOWN NOTED. INTERDRY IN ABDOMINAL FOLDS. NO ACUTE DISTRESS NOTED AT THIS TIME. O2 SAT 92% ON HIGH FLOW OXYGEN. PT DESATURATES PERIODICALLY, ENCOURAGED TO USE INCENTIVE SPIROMETER. ALL NEEDS TENDED TO THROUGHOUT SHIFT. WILL CONTINUE TO MONITOR AND ENDORSE CARE TO CLERICAL TRANSCRIBER.
--- NOTE | 2019-04-21 19:10 | NUR ---
RECEIVED PT LAYING IN BED, NO ACUTE DISTRESS OBSERVED. DENIES PAIN OR DISCOMFORT. BREATHING EVEN AND UNLABORED ON HIGH FLOW O2 AT 15 LPM, FIO2 30% LUNGS CTA, CONTINUOUS PULSE OX IN PLACE, 93% DENIES SOB OR DYSPNEA. AA/OX4, ABLE TO MAKE NEEDS KNOWN, SPEECH CLEAR AND APPROPRIATE, AROUSABLE TO VERBAL STIMULI. NSR TO TELE #7, DENIES CP OR PRESSURE. WEAK PEDAL PULSES, TRACE EDEMA TO BLE, PT ON HEP SQ THERAPY. ABD ROUND AND SOFT WITH ACTIVE BOWEL SOUNDS, DENIES N/V/D. AVILA CATH IN PLACE, DRAINING MANDEEP URINE TO GRAVITY, MILD SCROTAL EDEMA NOTED. GENERALIZED WEAKNESS, AMBULATORY AND ABLE TO REPOSITION SELF IN BED, DOING WELL WITH P.T. REDNESS WITH FOUL ODOR NOTED TO ABD FOLDS AND B/L THIGH FOLDS, INTERDRY IN PLACE, CDI. IV TO LW S/L AT THIS TIME, NO PAIN, REDNESS OR SWELLING NOTED WQHEN FLUSHED WITH NS. COMFORT AND SAFETY MEASURES IN PLACE. ALL NEEDS ASSESSED AND ATTENDED TO. CALL LIGHT WITHIN REACH. WILL CONTINUE TO MONITOR
[2019-04-21 20:51] VITALS: BP 110/47
--- NOTE | 2019-04-21 21:23 | NUR ---
PT ABLE TO GET UP TO BEDSIDE COMMODE WITH ASSISTANCE, TOLERATING WELL WITH MILD DESATURATION AT TIMES. PT ABLE TO HAVE LARGE SOFT, YELLOW BM. PERICARE RENDERED. COMPLETE LINEN AND BLANKET CHANGED DONE. PT BACK TO BED WITHOUT INCIDENT. REMAINS ON HIGH FLOW AT15 LPM, FIO2 30% 02 SAT 94. COMFORT AND SAFETY MEASURES REMAIN IN PLACE. CALL LIGHT WITHIN REACH. WILL CONTINUE TO MONITOR
--- NOTE | 2019-04-21 23:15 | NUR ---
PT PLACED ONTO BIPAP PER RT AT THIS TIME. IPAP 16; EPAP 5; RATE 18; FIO1 60% TOLERATING WELL. PT DENIES PAIN OR DISCOMFORT AT THIS TIME. CALL LIGHT WITHIN REACH. WILL CONTINUE TO MONITOR
--- NOTE | 2019-04-21 23:15 | NUR ---
PT PLACED ONTO BIPAP PER RT AT THIS TIME. IPAP 16; EPAP 5; RATE 18; FIO2 60% TOLERATING WELL. PT DENIES PAIN OR DISCOMFORT AT THIS TIME. CALL LIGHT WITHIN REACH. WILL CONTINUE TO MONITOR
[2019-04-22 05:09] VITALS: BP 122/66
--- NOTE | 2019-04-22 05:35 | NUR ---
PT REMOVED OFF BIPAP PER RT, SWITCHED TO HIGH FLOW, BREATHING EVEN AND UNLABORED, NO SOB OR DYSPNEA OBSERVED. HIGH FLOW AT 15 LPM, FIO2 30% O2 SAT 92% AVILA CATH REMAINS DRAINING MANDEEP URINE TO GRAVITY, OUTPUT 950 ML. NO OTHER SIGNIFICANT CHANGES TO REPORT, PT COMPLIED WITH NURSING CARE THROUGHOUT THE SHIFT WITH NO ACUTE EVENTS OVERNIGHT. PT LAYING IN BED, BREATHING EVEN AND UNLABORED, AROUSABLE TO VERBAL STIMULI. COMFORT AND SAFETY MEASURES MAINTAINED. ALL NEEDS ASSESSED AND ATTENDED TO. CALL LIGHT WITHIN REACH. WILL CONTINUE TO MONITOR AND ENDORSE CARE TO DAY SHIFT NURSE
[2019-04-22 06:33] LABS: CARBON DIOXIDE 32.4 mmol/L (21-32); CHLORIDE SERUM 98 mmol/L (98-107); CREATININE SERUM 1.2 mg/dL (0.7-1.3); GFR1 > 60 mL/min; GLUCOSE SERUM 90 mg/dL (74-106); POTASSIUM SERUM 3.4 mmol/L (3.5-5.1); SODIUM SERUM 139 mmol/L (136-145)
[2019-04-22 06:47] LABS: PLATELET COUNT 349 x10^3mcL (130-400)
[2019-04-22 07:06] LABS: BASOPHIL % 0 % (0-2); RED CELL DISTRIBUTION WIDTH 21.4 % (11.5-14.5); rbc morphology (normal/abnorm) ABNORMAL (NORMAL)
--- NOTE | 2019-04-22 07:10 | NUR ---
RECEIVED BEDSIDE REPORT FROM PORTRAIT PHOTOGRAPHER NURSE. PATIENT IS STABLE, RESTING COMFORTABLY IN BED. NO APPARENT SIGNS FO PAIN, SOB, OR RESPIRATORY DISTRESS. PATIENT ON HIGH FLOW OXYGEN, 15LPM, 30%. ON CONTINUOUS PULSE OX 30% HR 94. AVILA CATH IN PLACE, DRAINING YELLOW URINE. PATIENT IS WEARING GALSSES. IV TO LEFT WRIST SALINE LOCKED. NO EDEMA OR ERYTHEMA NOTED TO SITE. CALL LIGHT WITHIN REACH, BED IN LOW POSITION, ON [facility] BARIATRIC BED. QUESTIONS AND CONCERNS ADDRESSED. SAFETY PRECAITIONS IN PLACE.
--- NOTE | 2019-04-22 07:50 | NUR ---
PHYSICAL ASSESSMENT COMPLETED. PLEASE SEE PROBLEM FOCUSED CARE FOR DETAILS.
--- NOTE | 2019-04-22 08:52 | NUR ---
ADMINISTERED MEDCATIONS PER EMAR. PATIENT EDUCATED ON NEED FOR MEDICATION, AND ADVERSE EFFECTS TO REPORT. PATIENT VERBALIZED UNDERSTANDING. REPORTING MANAGER TOLORATED WELL. PATIENT DENIES OTHER NEEDS AT THIS TIME. CALL LIGHT WITHIN REACH. BED IN LOW POSITION. SAFETY PRECAUTIONS IN PLACE.
[2019-04-22 09:19] VITALS: BP 122/67
--- NOTE | 2019-04-22 09:33 | NUR ---
PATIENT IS STABLE NO APPARENT SIGNS OF RESPIRATORY DISTRESS. PATIENT DENIES PAIN AND SOB. PATIENT DENIES OTHER NEEDS AT THIS TIME. CALL LIGHT AND PHONE WITHIN REACH. BED IN LOW POSITION. QUESTIONS AND CONCERNS ADDRESSED. SAFETY PRECAUTIONS IN PLACE.
[2019-04-22 09:54] VITALS: BP 122/67
--- NOTE | 2019-04-22 11:25 | NUR ---
ADMINISTERED 1130 GLUCOSE CHECK. NO COVERAGE NEEDED PER SLIDING SCALE. REMOVED AVILA AFTER RECEIVEING ORDER TO D/C AVILA CATH. PATIENT TOLORATED WELL. PATIENT REQUESTED TO AMBULATE TO RESTROOM. PATIENT TOLORATED WELL WITH NO ASSISSTANCE. CLEANED UP WASHED FACE AND HAIR. RETURNED TO BEDSIDE CHAIR. PATIENT IS RESTING COMFORTABLY IN BEDSIDE CHAIR. DENIES OTHER NEEDS AT THIS TIME. SAFETY PRECAUTIONS IN PLACE.
--- NOTE | 2019-04-22 11:53 | NUR ---
PATIENT RESTING COMFORTABLY IN BED. PATIENT DENIES PAIN, SOB, OR RESPIRATORY DISTRESS. PATIENT ON NC 3L TOLORATING WELL. OXYGEN SAT 97%. PATIENT REORINTED TO TAKE DEEP BREATHS TO HELP OXYGEN LEVELS STAY WNL. PATIENT VERBALIZED UNDERSTANDING. QUESTIONS AND CONCERNS ADDRESSED. CALL LIGHT AND PHONE WITHIN REACH. PATIENT RESTING COMFOTABLY IN BEDSIDE CHAIR. SAETY PRECAUTIONS IN PLACE.
--- NOTE | 2019-04-22 12:04 | NUR ---
PRINCIPAL SYSTEMS ARCHITECT AT BEDSIDE TO TITRATE OXYGEN FROM 3L NC TO 2L NC. PULS EOX AT 97% ON 3L. PATIENT TOLORATING WELL. SAFETY PRECAUTIONS IN PLACE.
[2019-04-22 12:39] VITALS: BP 101/62
--- NOTE | 2019-04-22 14:40 | NUR ---
ADMINISTERED MEDCATIONS PER EMAR. PATIENT EDUCATED ON NEED FOR MEDICATION, AND ADVERSE EFFECTS TO REPORT. PATIENT VERBALIZED UNDERSTANDING. GAS WELDER TOLORATED WELL. PATIENT DENIES OTHER NEEDS AT THIS TIME. CALL LIGHT WITHIN REACH. BED IN LOW POSITION. SAFETY PRECAUTIONS IN PLACE.
--- NOTE | 2019-04-22 14:45 | NUR ---
RECEIVED ORDERS TO DC TELE, TRANSFER TO MED SURG. PATIENT IS STABLE NO APPARENT SIGNS OF PAIN, RESPIRATORY DISTRESS. PATIENT DENIES SOB, CHEST PAIN, OR DIZZINESS. PATIENT EDUCATED ON SIGNS AND SYMPTOMS TO REPORT. VERBALIZED UNDERSTANDING. TELE REMOVED AND RETURNED. SAFETY PRECAUTIONS IN PLACE.
--- NOTE | 2019-04-22 16:41 | NUR ---
ADMINISTERED MEDCATIONS PER EMAR. PATIENT EDUCATED ON NEED FOR MEDICATION, AND ADVERSE EFFECTS TO REPORT. PATIENT VERBALIZED UNDERSTANDING. MILITARY PROFESSIONAL TOLORATED WELL. PATIENT DENIES OTHER NEEDS AT THIS TIME. CALL LIGHT WITHIN REACH. BED IN LOW POSITION. SAFETY PRECAUTIONS IN PLACE.
--- NOTE | 2019-04-22 17:39 | NUR ---
PATIENT RESTING COMFORTABLY IN BED. PATIENT DENIES PAIN, SOB, OR RESPIRATORY DISTRESS. PATIENT ON NC 3L TOLORATING WELL. OXYGEN SAT 95%. PATIENT REORINTED TO TAKE DEEP BREATHS TO HELP OXYGEN LEVELS STAY WNL. PATIENT VERBALIZED UNDERSTANDING. QUESTIONS AND CONCERNS ADDRESSED. CALL LIGHT AND PHONE WITHIN REACH. PATIENT RESTING COMFOTABLY IN BEDSIDE CHAIR. SAETY PRECAUTIONS IN PLACE.
--- NOTE | 2019-04-22 17:40 | NUR ---
PATIENT RESTING COMFORTABLY IN BED. PATIENT DENIES PAIN, SOB, OR RESPIRATORY DISTRESS. PATIENT ON NC 3L TOLORATING WELL. OXYGEN SAT 95%. PATIENT REORINTED TO TAKE DEEP BREATHS TO HELP OXYGEN LEVELS STAY WNL. PATIENT VERBALIZED UNDERSTANDING. QUESTIONS AND CONCERNS ADDRESSED. CALL LIGHT AND PHONE WITHIN REACH. PATIENT RESTING COMFOTABLY IN BED. SAETY PRECAUTIONS IN PLACE.
[2019-04-22 17:57] VITALS: BP 111/53
--- NOTE | 2019-04-22 18:14 | NUR ---
PATIENT IS STABLE, NO APPARENT SIGNS OF PAIN. PATIENT DENIES SOB, OR RESPIRATORY DISTRESS. ON 2L NC. TOLORATING WELL PATIENT ON THE [facility] BED. CONTINUOUS PULSE OX IN PLACE. IV TO LEFT WRIST SALINE LCOKED. FLUSHES WELL WITH NS. NO EDEMA OR ERYTHEMA NOTED AT SITE. CALL LIGHT AND PHONE WITHIN REACH. BED IN LOW POSITION, BED RAILS UP X2. QUESTIONS AND CONCERNS ADDRESSED. SAFETY PRECAUTIONS IN PLACE. WILL ENDORSE CARE TO PIANO BUILDER NURSE.
--- NOTE | 2019-04-22 19:30 | NUR ---
RECEIVED PT FROM DAY SHIFT RN. PT IS ALERT AND ORIENTED TO PERSON PLACE TIME AND SITUATION AND IS CURRENTLY RESTING IN BED. PT COMPLAINED OF INTERMITTENT SHORTNESS OF BREATH ON 2L NASAL CANULA BUT STATED BREATHING DEEPLY HELPS. INSTRUCTED PT TO SIT WITH THE BED ELEVATED IN ORDER TO PROMOTE LUNG EXPANSION AND DECREASE THE RISK FOR RESPIRATORY DISTRESS. PT HAS TRACDE EDEMA NOTED TO THE BLE. ENCOURAGED ELEVATION OF FEET TO REDUCE EDEMA. INSRUCTED PT TO CALL WHEN NEEDING TO AMBULATE TO THE RESTROOM FOR SAFETY REASONS. PT INSTRUCTED TO CALL IF HE FEELS INCREASE IN SOB OR CHEST PAIN. DENIES PAIN AT THIS TIME. BED IN LOWEST POSITION. SAFETY MEASURES ARE IN PLACE. CALL LIGHT WITHIN REACH. WILL MONITOR.
[2019-04-22 20:59] VITALS: BP 111/50
--- NOTE | 2019-04-23 04:41 | NUR ---
PT ON BIPAP AND TOLERATING WELL. SAT AT 96% BREATHING IS EVEN AND UNLABORED THERE ARE NO USE OF ACCESSORY MUSCLES. PT DOES NOT APPEAR TO BE IN ANY DISTRESS AT THIS TIME. NO FACIAL GRIMMACING.
--- NOTE | 2019-04-23 05:14 | NUR ---
PT VOIDED 50ML ATTEMPTED TO DO BLADDER SCAN BUT UNSUCCESSFUL READING.
[2019-04-23 05:27] VITALS: BP 107/48
--- NOTE | 2019-04-23 06:31 | NUR ---
SYNTHROID NOT AVAILABLE IN [facility]. INFORMED [facility]. LISA TO CALL BACK AROUND [phone]
[2019-04-23 06:39] LABS: BASOPHIL % 0.1 % (0-2); PLATELET COUNT 359 x10^3mcL (130-400)
[2019-04-23 06:44] LABS: CALCIUM 10.5 mg/dL (8.5-10.1); CARBON DIOXIDE 32.5 mmol/L (21-32); CREATININE SERUM 2.7 mg/dL (0.7-1.3); POTASSIUM SERUM 4.3 mmol/L (3.5-5.1)
--- NOTE | 2019-04-23 06:45 | NUR ---
SPOKE TO [facility] ABOUT SYNTHROID. PER [facility] THEY WILL LOOK INTO IT AND GET BACK TO US. WILL ENDORSE TO DAY SHIFT RN.
--- NOTE | 2019-04-23 08:00 | NUR ---
RECEIVED PATIENT OBESITY. SLEEPING ON BIG BOY BED. ALERT/ORIENTED X4. NO TELE MONITOR. BREATHING SOUND DIMINISHED LAURENCE. NON PRODUCTIVE COUGHING. O2 SAT 86% ON RA, IMPROVED TO 96% ON 3L VIA N/C. TRACE EDEMA TO BLE. IVHL'D TO L WRIST. AMBULATORY. TOLERATED CCHO DIET. DENIED PAIN. PER REPORT OF NOC NURSE -PATIENT HAD 50 CC OF URINE OUTPUT LAST SHIFT. DR. LEE CAME TO SEE PATIENT. ORDERED TO D/C FLUID RESTRACT. ICE WATER 180 CC GIVEN. ASKED PATIENT VOID IN ULRINAL FOR MEASUREMENT. CALL LIGHT IN REACH.
[2019-04-23 09:24] VITALS: BP 103/40
[2019-04-23 10:04] LABS: rbc morphology (normal/abnorm) ABNORMAL (NORMAL); tear drop cell (dacryocyte) 1+
[2019-04-23 10:06] LABS: ovalocyte/elliptocyte 1+
--- NOTE | 2019-04-23 16:07 | NUR ---
ENTERED PATIENT'S ROOM. PATIENT HAD A NAP. FOUND O2 SAT 77% ON 3L VIA N/C. O2 SAT COULD BE BACK UP TO 93% AFTER AROUSED PAITENT. PAGED RT FOR TREATMENT. ALSO, REPORTED TO STEPHANIE THIS EPISODE. PATIENT IS MED-SURG NOW.
--- NOTE | 2019-04-23 16:18 | NUR ---
RESP TREATMENT GIVING. TELE#[id number] APPLIED PER ORDER. SR, HR =[phone]. CONTINUE MONITOR.
[2019-04-23 17:59] VITALS: BP 110/68
--- NOTE | 2019-04-23 18:32 | NUR ---
PATIENT VOID 1000 CC OF MANDEEP COLOR URINE THIS SHIFT. HAD BM X2 VIA BRP. DENIED PAIN AND SOB. ON CONTINUED OXIMETR AND O2 3L/MIN. ENDORSED CARE TO NOC NURSE.
--- NOTE | 2019-04-23 19:15 | NUR ---
RECEIVED PT FROM DAY SHIFT RN. PT IS RESTING IN BED ALERT AND ORIENTED X4. FAMILY IS CURRENTLY AT THE BEDSIDE. PT DENIES SHORTNESS OF BREATH AT THIS TIME WITH 3L NASAL CANULA. ON ASSESSMENT BREATHING IS EVEN AND UNLABORED BUT DIMINISHED AT THE BASES OF THE LUNGS. TELE MONITOR #[id number] AND PT DENIES CHEST PAIN AT THIS TIME. PT IS AMBULATORY INDEPENDENTLY TO THE BATHROOM. INSTRUCTED PT TO PEE IN URINAL IN ORDER TO ADEQUATELY TRACK INTAKE AND OUTPUT. SAFETY MEASURES ARE IN PLACE. BED IS IN THE LOWEST POSISION. CALL LIGHT IS WITHIN REACH. WILL CONTINUE TO MONITOR.
--- NOTE | 2019-04-23 20:39 | NUR ---
PT B WILL NOT ADMINISTER INSULIN. SNACKS PROVIDED TO REDUCE THE RISK OF HYPOGLYCEMIA
[2019-04-23 20:54] VITALS: BP 129/80
--- NOTE | 2019-04-24 01:01 | NUR ---
PT ON BIPAP AT THIS TIME. TOLERATING WELL. NO USE OF ACCESSORY MUSCLES OR LABORED BREATHING. PT TOLERATING WELL.
[2019-04-24 05:54] VITALS: BP 136/78
--- NOTE | 2019-04-24 06:02 | NUR ---
PT RESTING IN BED WITH EYES CLOSED. NO DISTRESS NOTED. BREATHINS IS EVENA AND UNLABORED. PT TOLERATING BIPAP WELL. SAFETY MEASURES ARE IN PLACE. BED IS IN THE LOWEST POSITION. CALL LIGHT IS WITHIN REACH. WILL ENDORSE CONTINUITY OF CARE TO THE DAY SHIFT RN.
[2019-04-24 07:03] LABS: BASOPHIL % 0.3 % (0-2); PLATELET COUNT 387 x10^3mcL (130-400)
--- NOTE | 2019-04-24 07:10 | NUR ---
RECIVED HAND OFF REPORT FROM NIGHT NURSE. PATIENT FOUND AMBULATING FROM RESTROOM WITH NO ASSITANCE, GAIT STEADY. PATIENT WEARS BiPAP AT NIGHT, REMOVED AT THIS TIME. REQUESTED TO BE ON NASAL CANULA, 3L TOLLERATING WELL. NO COMPLAINTS AT THIS TIME. CALL LIGHT WITHIN REACH
[2019-04-24 07:23] LABS: RED CELL DISTRIBUTION WIDTH 21.8 % (11.5-14.5)
[2019-04-24 07:24] LABS: CARBON DIOXIDE 32.1 mmol/L (21-32); CHLORIDE SERUM 99 mmol/L (98-107); GFR1 > 60 mL/min; GLUCOSE SERUM 93 mg/dL (74-106); POTASSIUM SERUM 3.3 mmol/L (3.5-5.1); SODIUM SERUM 138 mmol/L (136-145); rbc morphology (normal/abnorm) ABNORMAL (NORMAL)
[2019-04-24 07:57] VITALS: BP 116/53
--- NOTE | 2019-04-24 09:21 | NUR ---
ADMINISTERED MEDICATIONS PER MAR, REPLACED LEADS ON ANDREW TO TRY AND GET BETTER READOUT FOR TELE MONITOR. PATIENT HAD NO COMPLAINTS, CALL LIGHT WITHIN REACH
--- NOTE | 2019-04-24 10:49 | NUR ---
HOME O2 EVALUATION DONE AND GATHERED THE FOLLOWING RESULTS. SPO2 ON 2L NC WHILE AT REST 95%, SPO2 ON ROOM AIR AT REST 90%. SPO2 ON ROOM AIR WHILE AMBULATING 86%. SPO2 ON 2L NC WHILE AMBULATING 92%. NO INCIDENT NOTED WHILE PERFORMING HOME O2 EVAL. WILL CONT TO MONITOR
[2019-04-24 11:51] VITALS: BP 116/62
--- NOTE | 2019-04-24 12:08 | NUR ---
BG RESULT WAS 86, NO COVERAGE NEEDED. DR CONTRERAS SAW PATIENT AND INFORMED PATIENT OF IMPROVED KIDNEY FUNCTION. RT TO FINISH BREATHING TREATMENT. HOME 02 EVALUATION COMPLETED. PATIENT HAD NO COMPLAINTS. CALL LIGHT WITHIN REACH
--- NOTE | 2019-04-24 14:17 | NUR ---
ADMINISTERED HEPARIN PER MAR. PATIENT SITTING UP IN BED, RESTING A TTHIS TIME. NO COMPLAINTS CALL LIGHT WITH IN REACH
--- NOTE | 2019-04-24 15:24 | NUR ---
Follow-up Nutrition Assessment: (-B) KINSEY PUCKETT 39M Dx: Heart failure PMHx: HTN Labs: K 3.3 L, CO2 32.1 L, BUN 51 H, Cr 1.0 WNL, BG 93 WNL, A1c 6.4 H Meds: Colace, Coreg, Humulin, Lasix (20mg BID), Synthroid, Zofran Diet: CCHO PO Intake: ~93% (since admit), 100% (since previous FU 04/20) Weights: 445# (04/20) 473# (04/16) 493# (04/15) I/Os: 2500/2450 (04/24) 300/1050 (04/23) 480/4100 (04/22) 734/8270 (04/21) Skin: erythem noted to thighs and abd Juan: 18 Edema: BLE GI: Last BM: 04/23 RD Note (04/24): Noted Lasix regimen conitnued decreased per MD: 40mg BID IV > 40mg BID PO > 20mg BID PO. Noted D/C Zaroxolyn and Zestril/Prinivil. Pt discussed in huddles this AM, planned D/C tomorrow. 04/23 noted BUN & Cr trending upwards, monitor UOP, per DIE STAMPING PRESS OPERATOR progress note. Visited pt bedside, eating well, appetite good. Pt states peeing good, stated filled two cups this morning. Pt planned for discharge tomorrow. 04/24 noted acute kidney injury r/t over-diuresis, suggest renal eval if no improvement, per Dr Mckeon consult. Noted confirmed w/ (04/17) and DIE STAMPING PRESS OPERATOR Nino & Jelani pedersen RN (04/20) recommendation to change diet from CCHO to Cardiac diet; current diet order [facility]. Spoke w/ DIE STAMPING PRESS OPERATOR Hannah regarding diet change to Cardiac diet, confirmed. Estimated Nutritional Needs Based on adjusted body weight (117.4 kg) Energy: 0873-3456 kcal/day (30-35 kcal/kg for wound healing) Protein: 176-235 g/day (1.5-2.0 g/kg for wound healing) Fluid: 1800 mL/day per MD (r/t Lasix regimen; fluid restriction r/t CHF) Nutrition Diagnosis: 04/17: Altered-nutrition related lab values r/t obesity, heart failure AEB BMI 59.1, HDL 26, A1c 6.4 H. 04/20: No new nutrition diagnosis at this time. 04/24: Altered nutrition-related lab values r/t Lasix regimen/over-diuresis AEB acute kidney injury, decreased UOP, BUN & Cr trending upwards. Intervention: 1. Recommend change diet order to Cardiac diet. Monitor/Evaluate: Goal: Have pt meet at least 75% of estimated needs Monitor: PO intake, Labs, GI function F/U in 3-5 days as moderate risk 04/27-04/29
--- NOTE | 2019-04-24 15:25 | NUR ---
Recommendations: 1. Recommend change diet order to Cardiac diet.
[2019-04-24 16:01] VITALS: BP 113/66
--- NOTE | 2019-04-24 16:33 | NUR ---
ADMINSITERED MEDICATON PER DEC. PATIENT HAD NO COMPLAINTS AT THIS TIME. BG 94 NO COVERAGE NEEDED. CALL LIGHT WITHIN REACH
--- NOTE | 2019-04-24 19:58 | NUR ---
PT RECIEVED AAO REG RESP NO SOB AND ON 3L N/C SAT 96%,HL TO THE LT WRIST WITH THE SITE PATENT AND INTACT,BED IN THE LOW POSITION AND LOCKED,KEPT CLEAN AND DRY TO TOUCH,PT WITH SCROTAL EDEMA AND ERYTHEMA TO THE ABDO AND THIGH FOLDS,BED IN THE LOW POSITION AND LOCKED,MADE COMFORTABLE IN BED AND WILL CONTINUE TO MONITOR.
[2019-04-24 20:55] VITALS: BP 113/53
--- NOTE | 2019-04-25 05:30 | NUR ---
pt WAS PUT ON BIPAP 16/5 RATE 18 FIO2 40%,PT TOLERATING WELL AND SLEEPING SOUNDLY AND WILL CONTINUE TO MONITOR.
--- NOTE | 2019-04-25 05:32 | NUR ---
PT SLEEPING SOUNDLY AT THIS TIME,WILL CONTINUE TO MONITOR.
[2019-04-25 05:50] VITALS: BP 143/80
--- NOTE | 2019-04-25 06:28 | NUR ---
PT HAD A RESTING NIGHT NO CHANGE AT THIS TIME,WILL CONTINUE TO MONITOR.
[2019-04-25 06:35] LABS: BASOPHIL % 0.2 % (0-2); PLATELET COUNT 361 x10^3mcL (130-400)
[2019-04-25 06:54] LABS: CALCIUM 10.5 mg/dL (8.5-10.1); CARBON DIOXIDE 30.1 mmol/L (21-32); CHLORIDE SERUM 97 mmol/L (98-107); CREATININE SERUM 0.9 mg/dL (0.7-1.3); GFR1 > 60 mL/min; GLUCOSE SERUM 86 mg/dL (74-106); POTASSIUM SERUM 3.3 mmol/L (3.5-5.1); SODIUM SERUM 139 mmol/L (136-145)
--- NOTE | 2019-04-25 07:09 | NUR ---
HANDOFF REPORT RECEIVED. PATIENT IN BED WITH BIPAP IN USE AT 40% O2RR 18 97% SAT. NOT IN ANY DISTRESS. CALL CALERO WITHIN REACH.
[2019-04-25 07:24] LABS: RED CELL DISTRIBUTION WIDTH 21.6 % (11.5-14.5)
[2019-04-25 08:10] VITALS: BP 123/72
[2019-04-25] MEDS ORDERED: COR3 PO (09:15)
[2019-04-25] MEDS ORDERED: LASIX20 MG PO (09:15)
[2019-04-25] MEDS ORDERED: LEVOTHYROXIN0.025 M2 PO (09:15)
[2019-04-25 09:40] VITALS: BP 123/72
--- NOTE | 2019-04-25 11:25 | NUR ---
MD LEE VISITING PATIENT. AWAITING CONCENTRATOR DELIVERY TODAY BEFORE 3PM. PATIENT WAS GIVEN PNEUMONIA VACCINE 04/16/2019.
[2019-04-25 13:11] VITALS: BP 119/75
[2019-04-25 13:56] LABS: rbc morphology (normal/abnorm) ABNORMAL (NORMAL)
--- NOTE | 2019-04-25 15:26 | NUR ---
IN BED RESTING WITH NASAL CANULA IN USE. AWAITING DELIVERY OF CONCENTRATOR TO HIS HOUSE.
[2019-04-25 17:51] VITALS: BP 113/77
== END 2019-04-25 18:45 | disposition home or self-care (01) | DRG 291 ==
LOC: ED 13:20 → DU 17:34 → MU 17:34 → DU 19:46 → IC 04-14 13:40 → DU 04-16 13:56 → MU 04-22 14:45 → DU 04-23 16:19
PROVIDERS: Emergency Medicine; Internal Medicine; ADMIT Internal Medicine
PROC: 5A09357 Assistance with Respiratory Ventilation, Less than 24 Consecutive Hours, Continuous Positive Airway Pressure (ICD-10-PCS; 2019-04-14)
PROC: 5A09357 Assistance with Respiratory Ventilation, Less than 24 Consecutive Hours, Continuous Positive Airway Pressure (ICD-10-PCS; 2019-04-15)
PROC: 5A09357 Assistance with Respiratory Ventilation, Less than 24 Consecutive Hours, Continuous Positive Airway Pressure (ICD-10-PCS; 2019-04-15)
PROC: 5A09357 Assistance with Respiratory Ventilation, Less than 24 Consecutive Hours, Continuous Positive Airway Pressure (ICD-10-PCS; 2019-04-16)
PROC: 5A09357 Assistance with Respiratory Ventilation, Less than 24 Consecutive Hours, Continuous Positive Airway Pressure (ICD-10-PCS; 2019-04-17)
PROC: 5A09357 Assistance with Respiratory Ventilation, Less than 24 Consecutive Hours, Continuous Positive Airway Pressure (ICD-10-PCS; 2019-04-19)
PROC: 5A09357 Assistance with Respiratory Ventilation, Less than 24 Consecutive Hours, Continuous Positive Airway Pressure (ICD-10-PCS; 2019-04-20)
PROC: 5A09357 Assistance with Respiratory Ventilation, Less than 24 Consecutive Hours, Continuous Positive Airway Pressure (ICD-10-PCS; principal; 2019-04-22)
DX: I13.0 Hypertensive heart and chronic kidney disease with heart failure and stage 1 through stage 4 chronic kidney disease, or unspecified chronic kidney disease (principal); J96.21 Acute and chronic respiratory failure with hypoxia; I50.43 Acute on chronic combined systolic (congestive) and diastolic (congestive) heart failure; J96.22 Acute and chronic respiratory failure with hypercapnia; Z68.44 Body mass index [BMI] 60.0-69.9, adult; E44.0 Moderate protein-calorie malnutrition; E66.2 Morbid (severe) obesity with alveolar hypoventilation; N17.9 Acute kidney failure, unspecified; E87.3 Alkalosis; E11.65 Type 2 diabetes mellitus with hyperglycemia; I50.813 Acute on chronic right heart failure; N18.9 Chronic kidney disease, unspecified; I42.9 Cardiomyopathy, unspecified; N50.89 Other specified disorders of the male genital organs; E02 Subclinical iodine-deficiency hypothyroidism; Z23 Encounter for immunization; Z79.899 Other long term (current) drug therapy; Z99.81 Dependence on supplemental oxygen
CPT/HCPCS: 36600; 82962; 83880; 84439; 90732; 97530-GP; C1758; G0378; J1644; J1940; J3490; J7620; Q0092